=== PATIENT | female | born 1960 | race Caucasian/White ===

== ENCOUNTER 2016-06-30 15:36 | Emergency (ER) | payer MEDICAID ==
[~2016-06-30] VITALS: Ht 165.1 cm; Wt 94.7 kg
[~2016-06-30 15:36] MED LIST: ALPR0.25 PO; AMLO10TA4 PO; AMOX1TAB64 PO; CEFD300C2 PO; CHOLESTEROL PO; CIPR2.5D EACHEYE; CLIN300C93 PO; DIPH25CA61 PO; GABA300C PO; GABA300C10 PO; GABA600T2 PO; HYDR12.58 PO; LISI1TAB5 PO; METR500T PO; OXYC1TAB7 PO; POTA10TA11 PO; PROM25SU34 PO; SUMA50TA3 PO
[2016-06-30] MEDS ORDERED: DIAZEPAM 5 MG/ML, 2ML IVPush ONE (16:00)
[2016-06-30] MEDS ORDERED: ONDANSETRON 2MG/ML, 2ML IVPush ONE (16:00)
[2016-06-30] MEDS ORDERED: SODIUM CHLORIDE FLUSH 10ML SYR IVF ONE (16:00)
[2016-06-30] MEDS ORDERED: KETOROLAC 30 MG/1 ML IVPush ONE (16:00)
[2016-06-30] MEDS ORDERED: MORPHINE SULFATE 4 MG/ML, 1ML IVPush PRN (16:00)
[2016-06-30] MEDS ORDERED: SODIUM CHLORIDE 0.9% 1,000ML IVBOLUS ONE (16:00)
[2016-06-30] MEDS ORDERED: MORPHINE SULFATE 4 MG/ML, 1ML ONE (16:12)
[2016-06-30] MEDS ORDERED: KETOROLAC 30 MG/1 ML ONE (16:12)
[2016-06-30] MEDS ORDERED: ONDANSETRON 2MG/ML, 2ML ONE (16:12)
[2016-06-30] MEDS ORDERED: DIAZEPAM 5 MG/ML, 2ML ONE (16:12)
[2016-06-30 17:01] VITALS: BP 111/71
== END 2016-06-30 17:20 | disposition home or self-care (01) ==
LOC: ED 17:14
DX: M54.16 Radiculopathy, lumbar region (principal); I12.9 Hypertensive chronic kidney disease with stage 1 through stage 4 chronic kidney disease, or unspecified chronic kidney disease; N18.9 Chronic kidney disease, unspecified; Z85.3 Personal history of malignant neoplasm of breast; Z90.10 Acquired absence of unspecified breast and nipple
CPT/HCPCS: 96361; 96374; 96375; 99284; J1885; J2405; J3360; J7030; J7512

== ENCOUNTER 2016-09-04 16:15 | Emergency (ER) | payer MEDICAID ==
[~2016-09-04] VITALS: Ht 162.6 cm; Wt 78.0 kg
[~2016-09-04 16:15] MED LIST changes: -CEFD300C2 PO; +CEFD300C37 PO
[2016-09-04 16:26] VITALS: BP_DIAS 90
[2016-09-04 17:49] VITALS: BP_SYST 138
== END 2016-09-04 17:51 | disposition home or self-care (01) ==
LOC: ED 16:47
DX: S39.012A Strain of muscle, fascia and tendon of lower back, initial encounter (principal); W18.2XXA Fall in (into) shower or empty bathtub, initial encounter; Y93.E1 Activity, personal bathing and showering; Y92.89 Other specified places as the place of occurrence of the external cause; Y99.8 Other external cause status
CPT/HCPCS: 72110; 99284

== ENCOUNTER 2018-02-07 13:14 | Emergency (ER) | payer SELFPAY ==
[~2018-02-07] VITALS: Ht 165.1 cm; Wt 92.2 kg
[~2018-02-07 13:14] MED LIST changes: +CLIN300C8 PO; -CLIN300C93 PO
[2018-02-07] MEDS ORDERED: LOSA1TAB19 PO (14:49)
[2018-02-07] MEDS ORDERED: HYDROcodone/APAP 5/325 TABLET PO PRN (15:00)
[2018-02-07] MEDS ORDERED: KETOROLAC 30 MG/1 ML IM ONE (15:00)
[2018-02-07] MEDS ORDERED: KETOROLAC 30 MG/1 ML ONE (15:20)
[2018-02-07] MEDS ORDERED: HYDROcodone/APAP 5/325 TABLET ONE (15:21)
[2018-02-07 15:44] VITALS: BP 153/98
== END 2018-02-07 15:47 | disposition home or self-care (01) ==
LOC: ED 15:41
DX: S29.012A Strain of muscle and tendon of back wall of thorax, initial encounter (principal); C80.1 Malignant (primary) neoplasm, unspecified; I10 Essential (primary) hypertension; W01.0XXA Fall on same level from slipping, tripping and stumbling without subsequent striking against object, initial encounter; Y93.89 Activity, other specified; Y99.8 Other external cause status; Y92.009 Unspecified place in unspecified non-institutional (private) residence as the place of occurrence of the external cause
CPT/HCPCS: 72072; 72110; 93005; 96372; 99283; J1885

== ENCOUNTER 2018-07-12 00:53 | Emergency (ER) | payer BC, OTHER ==
[~2018-07-12] VITALS: Ht 165.1 cm; Wt 85.0 kg
[~2018-07-12 00:53] MED LIST changes: -GABA600T2 PO; +GABA600T7 PO; -HYDR12.58 PO; +HYDROCHLOROTH12.5 MG PO; +LOSA1TAB19 PO
[2018-07-12] MEDS ORDERED: ONDANSETRON 2MG/ML, 2ML IVPush ONE (01:30)
[2018-07-12] MEDS ORDERED: SODIUM CHLORIDE FLUSH 10ML SYR IVF ONE (01:30)
[2018-07-12] MEDS ORDERED: FAMOTIDINE 20 MG/2 ML IVP ONE (01:30)
[2018-07-12 01:41] LABS: BASOPHILS # (AUTO) 0.03 x10^3/uL (0-0.1); BASOPHILS % (AUTO) 0 % (0-1); EOSINOPHILS # (AUTO) 0.25 x10^3/uL (0-0.4); EOSINOPHILS % (AUTO) 4 % (1-7); LYMPHOCYTES # (AUTO) 1.83 x10^3/uL (1-3.4); LYMPHOCYTES % (AUTO) 26 % (22-44); MD NO; MEAN CORPUSCULAR HEMOGLOBIN 32.1 pg (27.0-34.8); MEAN CORPUSCULAR HGB CONC 34.4 g/dL (32.4-35.8); MEAN CORPUSCULAR VOLUME 93.3 fL (80-100); MEAN PLATELET VOLUME 7.2 fL (7.4-10.4); MONOCYTES # (AUTO) 0.45 x10^3/uL (0.2-0.8); MONOCYTES % (AUTO) 6 % (2-9); NEUTROPHILS # (AUTO) 4.55 x10^3/uL (1.8-6.8); NEUTROPHILS % (AUTO) 64 % (42-75); PLATELET COUNT 285 x10^3/uL (130-400); RED BLOOD COUNT 4.48 x10^6/uL (3.82-5.3); RED CELL DISTRIBUTION WIDTH 12.9 % (9.6-15.2)
[2018-07-12 01:51] LABS: INTERNATIONAL NORMALIZED RATIO 0.96 (0.93-1.1); PROTHROMBIN TIME 10.1 Seconds (9.6-11.5)
[2018-07-12 01:54] LABS: ALANINE AMINOTRANSFERASE 18 U/L (12-78); ALBUMIN 3.5 g/dL (3.4-5.0); ANION GAP 7 mmol/L (5-15); CALCIUM 8.9 mg/dL (8.5-10.1); CHLORIDE 108 mmol/L (98-107)
[2018-07-12 01:56] LABS: ALKALINE PHOSPHATASE 59 U/L (45-117); BILIRUBIN,TOTAL 0.1 mg/dL (0.2-1.0); TOTAL PROTEIN 6.9 g/dL (6.4-8.2)
[2018-07-12] MEDS ORDERED: ONDANSETRON 2MG/ML, 2ML ONE (02:44)
[2018-07-12] MEDS ORDERED: FAMOTIDINE 20 MG/2 ML ONE (02:44)
[2018-07-12] MEDS ORDERED: MORPHINE SULFATE 4 MG/ML, 1ML ONE ×2 (02:54→04:35)
[2018-07-12] MEDS: MORPHINE SULFATE 4 MG/ML, 1ML IVPush PRN ×2 (02:56→04:37)
--- NOTE | 2018-07-12 02:57 | NUR ---
IV placed. medicated for pain and nausea. Ultrasound at bedside.
[2018-07-12 04:51] LABS: MICROSCOPIC AUTO
[2018-07-12 05:07] LABS: CULTURE INDICATED? YES
[2018-07-12] MEDS ORDERED: CEFDINIR 300 MG CAPSULE ONE (05:27)
[2018-07-12] MEDS ORDERED: CEFDINIR 300 MG CAPSULE PO ONE (05:30)
--- NOTE | 2018-07-12 05:33 | NUR ---
DC PAPERS BEING REPRINTED.
[2018-07-12 05:44] VITALS: BP 123/88
== END 2018-07-12 05:46 | disposition home or self-care (01) ==
LOC: ED 01:44
DX: N10 Acute pyelonephritis (principal); N30.00 Acute cystitis without hematuria; I10 Essential (primary) hypertension; Z85.3 Personal history of malignant neoplasm of breast
CPT/HCPCS: 36415; 76700; 80053; 81001; 83690; 85025; 85610; 85730; 87077; 87086; 93005; 96374; 96375; 96376; 99284; J2405; J3490; 87186

== ENCOUNTER 2018-08-08 14:38 | Emergency (ER) | payer OTHER ==
[~2018-08-08] VITALS: Ht 165.1 cm; Wt 81.2 kg
[2018-08-08 14:47] VITALS: BP 152/92
[2018-08-08] MEDS ORDERED: METHOCARBAMOL 750 MG TABLET PO ONE (15:30)
[2018-08-08] MEDS ORDERED: ACETAMINOPHEN 500 MG TABLET PO ONE (15:30)
[2018-08-08] MEDS ORDERED: ACETAMINOPHEN 500 MG TABLET ONE (15:32)
[2018-08-08] MEDS ORDERED: METHOCARBAMOL 750 MG TABLET ONE (15:32)
--- NOTE | 2018-08-08 16:09 | NUR ---
RAD awaiting CT-CSPINE clearance
== END 2018-08-08 17:07 | disposition home or self-care (01) ==
LOC: ED 16:45
DX: S16.1XXA Strain of muscle, fascia and tendon at neck level, initial encounter (principal); S39.012A Strain of muscle, fascia and tendon of lower back, initial encounter; S29.012A Strain of muscle and tendon of back wall of thorax, initial encounter; I12.9 Hypertensive chronic kidney disease with stage 1 through stage 4 chronic kidney disease, or unspecified chronic kidney disease; N18.9 Chronic kidney disease, unspecified; Z85.3 Personal history of malignant neoplasm of breast; W01.0XXA Fall on same level from slipping, tripping and stumbling without subsequent striking against object, initial encounter; Y93.01 Activity, walking, marching and hiking; Y92.009 Unspecified place in unspecified non-institutional (private) residence as the place of occurrence of the external cause; Y99.8 Other external cause status
CPT/HCPCS: 72072; 72125; 99284

== ENCOUNTER 2018-08-30 23:00 | Emergency (ER) | payer OTHER ==
[~2018-08-30] VITALS: Ht 165.1 cm; Wt 82.2 kg
--- NOTE | 2018-08-30 23:41 | NUR ---
PT HAS INCREASING PAIN AND SWELLING PER PT IN HEEL OF LLE. PT CONCERNED THAT SHE HAS A SPIDER BITE THERE. MONITORSAPPLIED, SIDERAILS UP X2, CALL LIGHT WITHIN REACH. AWAITING ERP FOR EVAL AND ORDERS
[2018-08-30] MEDS ORDERED: HYDROcodone/APAP 5/325 TABLET ONE (23:49)
--- NOTE | 2018-08-30 23:51 | NUR ---
pt medicate dper may, awaiting xray
[2018-08-31] MEDS ORDERED: HYDROcodone/APAP 5/325 TABLET PO ONE
--- NOTE | 2018-08-31 00:09 | NUR ---
XRAY AT BEDSIDE
--- NOTE | 2018-08-31 00:48 | NUR ---
PT RESTING CALMLY, MONITORS IN PLACE, CALL LIGHT WITHIN REACH. AWAITING XRAY RESULT
[2018-08-31 01:37] VITALS: BP 144/93
--- NOTE | 2018-08-31 01:37 | NUR ---
GIVEN DC INSTRUCTION PT UNDERSTOOD PT UP AMBULATED TO CHECK OUT WITH STABLE GAIT
== END 2018-08-31 01:39 | disposition home or self-care (01) ==
LOC: ED 23:59
DX: L03.116 Cellulitis of left lower limb (principal); I10 Essential (primary) hypertension; F17.200 Nicotine dependence, unspecified, uncomplicated; Z85.3 Personal history of malignant neoplasm of breast
CPT/HCPCS: 99283

== ENCOUNTER 2019-02-18 17:31 | Inpatient (IN) | payer OTHER ==
[~2019-02-18] VITALS: Ht 165.1 cm; Wt 83.7 kg
[~2019-02-18 17:31] MED LIST changes: +LISI1TAB19 PO; -LISI1TAB5 PO
--- NOTE | 2019-02-18 17:40 | NUR ---
THIS IS A 58 YO F BIB [facility] FOR ALOC. SHE WAS FOUND IN HER CAR PASSED OUT. [facility] METALLURGICAL OR MATERIALS TECHNICIAN BELIEVED HER TO HAVE NO PULSE SO BEGAN CPR. PATIENT HAD PULSE UPON [facility] ARRIVAL. [facility] GAVE A TOTAL OF 2MG NARCAN INTRANASALLY AND 1MG NARCAN IV. PATIENT'S RESPIRATIONS ARE EVEN AND UNLABORED. SHE IS ORIENTED X4, REQUESTING TO CALL . PATIENT IS IN NO ACUTE DISTRESS. PATIENT STATES "I TAKE PILLS OCCASIONALLY, I THINK THEY ARE OXY 30S BUT I DONT KNOW".
[2019-02-18] MEDS ORDERED: ONDANSETRON 2MG/ML, 2ML ONE ×2 (17:58→18:05)
[2019-02-18] MEDS ORDERED: ONDANSETRON 2MG/ML, 2ML IVPush ONE (18:00)
--- NOTE | 2019-02-18 18:08 | NUR ---
PATIENT VOMITED 500CC
--- NOTE | 2019-02-18 18:20 | NUR ---
PT REPORT FROM STEPHEN MINAYA RN. PT CARE TO BE ASSUMED.
[2019-02-18] MEDS ORDERED: NALOXONE 0.4 MG/ML, 1ML IVPush PRN (18:30)
[2019-02-18] MEDS ORDERED: SODIUM CHLORIDE 0.9% 1,000ML IVBOLUS ONE (18:30)
[2019-02-18 18:41] LABS: BASOPHILS # (AUTO) 0.02 x10^3/uL (0-0.1); BASOPHILS % (AUTO) 0 % (0-1); EOSINOPHILS # (AUTO) 0.14 x10^3/uL (0-0.4); EOSINOPHILS % (AUTO) 1 % (1-7); LYMPHOCYTES # (AUTO) 0.91 x10^3/uL (1-3.4); LYMPHOCYTES % (AUTO) 6 % (22-44); MD NO; MEAN CORPUSCULAR HEMOGLOBIN 31.2 pg (27.0-34.8); MEAN CORPUSCULAR HGB CONC 32.8 g/dL (32.4-35.8); MEAN CORPUSCULAR VOLUME 95.3 fL (80-100); MEAN PLATELET VOLUME 7.5 fL (7.4-10.4); MONOCYTES # (AUTO) 0.72 x10^3/uL (0.2-0.8); MONOCYTES % (AUTO) 5 % (2-9); NEUTROPHILS # (AUTO) 13.36 x10^3/uL (1.8-6.8); NEUTROPHILS % (AUTO) 88 % (42-75); PLATELET COUNT 240 x10^3/uL (130-400); RED BLOOD COUNT 4.47 x10^6/uL (3.82-5.3); RED CELL DISTRIBUTION WIDTH 13.1 % (9.6-15.2)
--- NOTE | 2019-02-18 18:42 | NUR ---
PT DOZING, INTERMITTENT SNORING RESP NOTED, EASILY AWAKENED. A&OX4. DENIES ETOH INTAKE, BUT SAID "I HAD HEMA'S IN MY COFFEE THIS MORNING". DENIES [address] DRUG USE, BUT STATED SHE "TOOK A BLUE PILL". CARDIAC & VS MONITORING CONITINUING. NS INFUSING W-O, IV SITE PATENT, OXYGEN SAT 96% 2LNC. PER RONY RN, PT REPORTED LT SIDED LUMPECTOMY.
[2019-02-18 18:48] LABS: ALANINE AMINOTRANSFERASE 106 U/L (12-78); ANION GAP 10 mmol/L (5-15); CALCIUM 8.8 mg/dL (8.5-10.1); CHLORIDE 107 mmol/L (98-107)
[2019-02-18 18:50] LABS: ALKALINE PHOSPHATASE 85 U/L (45-117); BILIRUBIN,TOTAL 0.4 mg/dL (0.2-1.0); CREATININE 1.73 mg/dL (0.55-1.02); TOTAL PROTEIN 7.8 g/dL (6.4-8.2)
--- NOTE | 2019-02-18 20:54 | NUR ---
PT ASLEEP, EVEN CHEST RISE & FALL NOTED, CARDIAC & VS MONITORING CONTINUING (NSR), SIDE RAILS UP X2, CALL LIGHT W/IN REACH.
--- NOTE | 2019-02-18 21:35 | NUR ---
RA O2 SAT: 83%. WILL NOTIFY ERP OF ROOM SAT. PT ORIENTED TO NAME, PLACE, SITUATION. DENIES ETOH INTAKE (EXCEPT FOR BAILEYS IN HER COFFEE), DRUG USE, SI. O2 2LNC REAPPLIED. MONITOR: NSR. SIDE RAILS UP X2, CALL LIGHT W/IN REACH.
--- NOTE | 2019-02-18 22:09 | NUR ---
REPORT CALLED TO HEMAL BRYANT FOR ROOM 409
[2019-02-18 22:29] LABS: MICROSCOPIC AUTO
[2019-02-18 22:32] LABS: CULTURE INDICATED? NO
[2019-02-18 22:42] LABS: AMPHETAMINE SCREEN, URINE Negative (Negative); BARBITURATE SCREEN, URINE Negative (Negative); BENZODIAZEPINE SCREEN, URINE Negative (Negative); CANNABINOID SCREEN, URINE Negative (Negative); COCAINE SCREEN, URINE Negative (Negative); METHADONE SCREEN, URINE Negative (Negative); OPIATE SCREEN, URINE Negative (Negative)
[2019-02-18 22:48] VITALS: BP 118/75
[2019-02-19] MEDS ORDERED: BISACODYL 10 MG SUPP PR PRN (00:30)
[2019-02-19 01:53] VITALS: BP 113/68
[2019-02-19] MEDS: ACETAMINOPHEN 325 MG TABLET PO PRN ×2 (06:44→20:57)
[2019-02-19] MEDS: LIDODERM 5% PATCH TD PRN (06:47)
[2019-02-19 07:46] VITALS: BP 159/82
[2019-02-19] MEDS: ENOXAPARIN 40 MG/0.4 ML SQ SCH (09:00)
[2019-02-19 12:25] LABS: BASOPHILS # (AUTO) 0.01 x10^3/uL (0-0.1); BASOPHILS % (AUTO) 0 % (0-1); EOSINOPHILS # (AUTO) 0.12 x10^3/uL (0-0.4); EOSINOPHILS % (AUTO) 2 % (1-7); LYMPHOCYTES # (AUTO) 1.14 x10^3/uL (1-3.4); LYMPHOCYTES % (AUTO) 15 % (22-44); MD NO; MEAN CORPUSCULAR HEMOGLOBIN 31.2 pg (27.0-34.8); MEAN CORPUSCULAR HGB CONC 32.8 g/dL (32.4-35.8); MEAN CORPUSCULAR VOLUME 95.2 fL (80-100); MEAN PLATELET VOLUME 7.6 fL (7.4-10.4); MONOCYTES # (AUTO) 0.48 x10^3/uL (0.2-0.8); MONOCYTES % (AUTO) 7 % (2-9); NEUTROPHILS % (AUTO) 77 % (42-75); PLATELET COUNT 220 x10^3/uL (130-400); RED BLOOD COUNT 4.16 x10^6/uL (3.82-5.3); RED CELL DISTRIBUTION WIDTH 13.1 % (9.6-15.2)
[2019-02-19 12:32] VITALS: BP 133/84
[2019-02-19 12:34] LABS: ALANINE AMINOTRANSFERASE 77 U/L (12-78); ALBUMIN 3.4 g/dL (3.4-5.0); ANION GAP 6 mmol/L (5-15); CALCIUM 8.8 mg/dL (8.5-10.1); CHLORIDE 110 mmol/L (98-107); CREATININE 1.08 mg/dL (0.55-1.02)
[2019-02-19 12:37] LABS: ALKALINE PHOSPHATASE 68 U/L (45-117); BILIRUBIN,TOTAL 0.4 mg/dL (0.2-1.0); TOTAL PROTEIN 6.9 g/dL (6.4-8.2)
[2019-02-19] MEDS: AMPICILLIN/SULBACTAM 1,500 MG in SODIUM CHLORIDE 0.9% 50 ML IV SCH ×2 (15:56→20:53)
[2019-02-19] MEDS ORDERED: OXYcodone IR 5MG TABLET PO PRN (16:30)
[2019-02-19 19:29] VITALS: BP 145/94
[2019-02-20 01:23] VITALS: BP 149/92
[2019-02-20] MEDS ORDERED: OXYcodone IR 5MG TABLET PO PRN ×2 (01:30→12:01)
[2019-02-20] MEDS: AMPICILLIN/SULBACTAM 1,500 MG in SODIUM CHLORIDE 0.9% 50 ML IV SCH ×3 (02:46→15:25)
[2019-02-20 06:20] LABS: BASOPHILS # (AUTO) 0.04 x10^3/uL (0-0.1); BASOPHILS % (AUTO) 1 % (0-1); EOSINOPHILS # (AUTO) 0.29 x10^3/uL (0-0.4); EOSINOPHILS % (AUTO) 4 % (1-7); LYMPHOCYTES # (AUTO) 1.21 x10^3/uL (1-3.4); LYMPHOCYTES % (AUTO) 16 % (22-44); MD NO; MEAN CORPUSCULAR HEMOGLOBIN 31.3 pg (27.0-34.8); MEAN CORPUSCULAR HGB CONC 32.9 g/dL (32.4-35.8); MEAN CORPUSCULAR VOLUME 95.2 fL (80-100); MEAN PLATELET VOLUME 7.5 fL (7.4-10.4); MONOCYTES # (AUTO) 0.56 x10^3/uL (0.2-0.8); MONOCYTES % (AUTO) 8 % (2-9); NEUTROPHILS # (AUTO) 5.31 x10^3/uL (1.8-6.8); NEUTROPHILS % (AUTO) 72 % (42-75); PLATELET COUNT 213 x10^3/uL (130-400)
[2019-02-20 06:33] LABS: ANION GAP 4 mmol/L (5-15); CALCIUM 8.7 mg/dL (8.5-10.1); CHLORIDE 113 mmol/L (98-107); CREATININE 0.91 mg/dL (0.55-1.02)
[2019-02-20 06:46] VITALS: BP 159/101
[2019-02-20] MEDS: LIDODERM 5% PATCH TD PRN (08:43)
[2019-02-20] MEDS: ENOXAPARIN 40 MG/0.4 ML SQ SCH (08:50)
[2019-02-20 09:38] VITALS: BP 160/99
[2019-02-20] MEDS ORDERED: AMLODIPINE 5 MG TABLET PO SCH (11:30)
[2019-02-20 13:52] VITALS: BP 155/98
[2019-02-20] MEDS ORDERED: HYDROcodone/APAP 10/325 MG TABLET PO PRN (14:00)
[2019-02-20 15:25] VITALS: BP 134/84
[2019-02-20] MEDS ORDERED: LIDO700A20 TD (16:33)
[2019-02-20] MEDS ORDERED: AMLO-150 PO (16:33)
[2019-02-20] MEDS ORDERED: AMOX1TAB12 PO (16:33)
== END 2019-02-20 17:52 | disposition home or self-care (01) | DRG 917 ==
LOC: ED 20:48 → EDIP 22:08 → 4WST 22:36
PROVIDERS: ADMIT Internal Medicine; ATTEND Internal Medicine
DX: T39.91XA Poisoning by unspecified nonopioid analgesic, antipyretic and antirheumatic, accidental (unintentional), initial encounter (principal); J69.0 Pneumonitis due to inhalation of food and vomit; G92 Toxic encephalopathy; J96.01 Acute respiratory failure with hypoxia; T40.601A Poisoning by unspecified narcotics, accidental (unintentional), initial encounter; F17.200 Nicotine dependence, unspecified, uncomplicated; F41.0 Panic disorder [episodic paroxysmal anxiety]; G89.4 Chronic pain syndrome; I12.9 Hypertensive chronic kidney disease with stage 1 through stage 4 chronic kidney disease, or unspecified chronic kidney disease; N18.3 Chronic kidney disease, stage 3 (moderate); Z85.3 Personal history of malignant neoplasm of breast; Z86.14 Personal history of Methicillin resistant Staphylococcus aureus infection
CPT/HCPCS: 36415; 71045; 80048; 80053; 80074; 80307; 81001; 85025; 93005; 96361; 96374; 99291; G0378; J2405; J0295; J7030

== ENCOUNTER 2019-02-27 10:33 | Emergency (ER) | payer OTHER ==
[~2019-02-27] VITALS: Ht 165.1 cm; Wt 83.6 kg
[~2019-02-27 10:33] MED LIST changes: +AMLO-150 PO; +AMOX1TAB12 PO; +LIDO700A20 TD
[2019-02-27 11:02] VITALS: BP 158/98
--- NOTE | 2019-02-27 11:11 | NUR ---
PT TO RADIOLOGY.
--- NOTE | 2019-02-27 11:34 | NUR ---
PT BACK FROM RADIOLOGY. PT STATES SHE IS HERE FOR POSSIBLE BROKEN RIB S/P CPR. PT STATES PAIN WORSE ON RIGHT SIDE.
[2019-02-27] MEDS ORDERED: OXYcodone/APAP 5/325MG TABLET PO ONE (12:00)
[2019-02-27] MEDS ORDERED: OXYcodone/APAP 5/325MG TABLET ONE (12:08)
--- NOTE | 2019-02-27 12:10 | NUR ---
PT MEDICATED PER MAR. IS TEACHING COMPLETED.
--- NOTE | 2019-02-27 12:13 | NUR ---
Patient/Caregiver given discharge instructions and they have confirmed that they understand the instructions. Patient ambulatory with steady gait.
== END 2019-02-27 12:15 | disposition home or self-care (01) ==
LOC: ED 12:04
DX: S22.41XA Multiple fractures of ribs, right side, initial encounter for closed fracture (principal); I10 Essential (primary) hypertension; F17.200 Nicotine dependence, unspecified, uncomplicated; X58.XXXA Exposure to other specified factors, initial encounter; Y93.89 Activity, other specified; Y92.89 Other specified places as the place of occurrence of the external cause; Y99.8 Other external cause status
CPT/HCPCS: 99283

== ENCOUNTER 2019-03-08 14:26 | Emergency (ER) | payer OTHER ==
[~2019-03-08] VITALS: Ht 165.1 cm; Wt 85.0 kg
--- NOTE | 2019-03-08 14:38 | NUR ---
plan for labs/cxr. Dr. Lo in room. pt denies drugs, has hx overdose.
[2019-03-08 14:58] LABS: BASOPHILS # (AUTO) 0.04 x10^3/uL (0-0.1); BASOPHILS % (AUTO) 0 % (0-1); EOSINOPHILS # (AUTO) 0.45 x10^3/uL (0-0.4); EOSINOPHILS % (AUTO) 5 % (1-7); LYMPHOCYTES # (AUTO) 1.74 x10^3/uL (1-3.4); LYMPHOCYTES % (AUTO) 19 % (22-44); MD NO; MEAN CORPUSCULAR HEMOGLOBIN 31.6 pg (27.0-34.8); MEAN CORPUSCULAR HGB CONC 33.6 g/dL (32.4-35.8); MEAN CORPUSCULAR VOLUME 93.8 fL (80-100); MONOCYTES # (AUTO) 0.38 x10^3/uL (0.2-0.8); MONOCYTES % (AUTO) 4 % (2-9); NEUTROPHILS # (AUTO) 6.75 x10^3/uL (1.8-6.8); NEUTROPHILS % (AUTO) 72 % (42-75); PLATELET COUNT 398 x10^3/uL (130-400); RED CELL DISTRIBUTION WIDTH 13.3 % (9.6-15.2)
[2019-03-08 15:08] LABS: ALBUMIN 3.6 g/dL (3.4-5.0); ANION GAP 7 mmol/L (5-15); CALCIUM 8.8 mg/dL (8.5-10.1); CHLORIDE 107 mmol/L (98-107); CREATININE 1.17 mg/dL (0.55-1.02)
[2019-03-08 15:11] LABS: TROPONIN I < 0.015 ng/mL (0.000-0.045)
--- NOTE | 2019-03-08 15:41 | NUR ---
CXR CLEAR LABS WNL WILL BE OBS TIL 1600. CALL PLACED TO , ON HIS WAY. PT A&O X4 GCS 15 VSS, ALERT, TALKING.
--- NOTE | 2019-03-08 15:58 | NUR ---
TASK RN: PT OOB AND AMBULATED TO BATHROOM, UPRIGHT STEADY GAIT. RTD TO ROOM W/O INCIDENT
--- NOTE | 2019-03-08 16:23 | NUR ---
family at bedside pt up for recheck.
[2019-03-08 16:40] VITALS: BP 112/73
== END 2019-03-08 16:43 | disposition home or self-care (01) ==
LOC: ED 15:00
DX: T40.601A Poisoning by unspecified narcotics, accidental (unintentional), initial encounter (principal); I10 Essential (primary) hypertension; F17.200 Nicotine dependence, unspecified, uncomplicated; Z90.89 Acquired absence of other organs; Z85.3 Personal history of malignant neoplasm of breast
CPT/HCPCS: 36415; 71045; 80048; 82040; 84484; 85025; 93005; 99284

== ENCOUNTER 2019-05-03 17:38 | Inpatient (IN) | payer OTHER ==
[~2019-05-03] VITALS: Ht 162.6 cm; Wt 84.8 kg
--- NOTE | 2019-05-03 17:41 | NUR ---
BIB EMS FOR WITNESSED COLLAPSE BY . UPON ARRIVAL, EMS FOUND PATIENT IN FULL ARREST, PERFORMED CPR AND GAVE NARCAN IN WELL IV. ROSC WAS OBTAINED. PT ARRIVES DROWSY. VS STABLE.
[2019-05-03] MEDS ORDERED: NALOXONE 8 MG in SODIUM CHLORIDE 0.9% 242 ML IV PRN (18:00)
[2019-05-03] MEDS ORDERED: SODIUM CHLORIDE FLUSH 10ML SYR IVF ONE (18:00)
--- NOTE | 2019-05-03 18:04 | NUR ---
PT REMAINS DROWSY BUT ORIENTED AND ANSWERING QUESTIONS. LAB AT BEDSIDE.
--- NOTE | 2019-05-03 18:04 | NUR ---
NARCAN DRIP STARTED AT 1MG/HR AT THE VERBAL BEDSIDE ORDER OF DR. CHEN.
--- NOTE | 2019-05-03 18:15 | NUR ---
AT BEDSIDE. SBAR BEDSIDE HAND-OFF REPORT GIVEN TO HEMAL ZUNIGA.
[2019-05-03 18:27] LABS: BASOPHILS # (AUTO) 0.02 x10^3/uL (0-0.1); BASOPHILS % (AUTO) 0 % (0-1); EOSINOPHILS # (AUTO) 0.12 x10^3/uL (0-0.4); EOSINOPHILS % (AUTO) 1 % (1-7); LYMPHOCYTES # (AUTO) 1.24 x10^3/uL (1-3.4); LYMPHOCYTES % (AUTO) 15 % (22-44); MD NO; MEAN CORPUSCULAR HEMOGLOBIN 31.5 pg (27.0-34.8); MEAN CORPUSCULAR HGB CONC 33.8 g/dL (32.4-35.8); MEAN PLATELET VOLUME 7.6 fL (7.4-10.4); MONOCYTES # (AUTO) 0.16 x10^3/uL (0.2-0.8); MONOCYTES % (AUTO) 2 % (2-9); NEUTROPHILS # (AUTO) 6.84 x10^3/uL (1.8-6.8); NEUTROPHILS % (AUTO) 82 % (42-75); PLATELET COUNT 274 x10^3/uL (130-400); RED BLOOD COUNT 4.53 x10^6/uL (3.82-5.3); RED CELL DISTRIBUTION WIDTH 13.1 % (9.6-15.2)
[2019-05-03 18:31] LABS: INTERNATIONAL NORMALIZED RATIO 0.99 (0.93-1.1); PROTHROMBIN TIME 10.5 Seconds (9.6-11.5)
[2019-05-03 18:34] LABS: ALBUMIN 3.7 g/dL (3.4-5.0); ANION GAP 15 mmol/L (5-15); CALCIUM 9.2 mg/dL (8.5-10.1); CHLORIDE 107 mmol/L (98-107)
[2019-05-03 18:37] LABS: ALANINE AMINOTRANSFERASE 34 U/L (12-78); ALKALINE PHOSPHATASE 80 U/L (45-117); BILIRUBIN,TOTAL 0.3 mg/dL (0.2-1.0); CREATININE 1.86 mg/dL (0.55-1.02); TOTAL PROTEIN 7.3 g/dL (6.4-8.2)
[2019-05-03 18:45] LABS: TROPONIN I 0.928 ng/mL (0.000-0.045)
[2019-05-03] MEDS ORDERED: ASPIRIN 81 MG TABLET CHEW ONE (18:59)
[2019-05-03] MEDS ORDERED: ASPIRIN 81 MG TABLET CHEW PO ONE (19:00)
[2019-05-03] MEDS ORDERED: SODIUM CHLORIDE 0.9% 1,000ML IVBOLUS ONE (19:00)
--- NOTE | 2019-05-03 19:07 | NUR ---
ASA GIVEN. NS BOLUS STARTED.
--- NOTE | 2019-05-03 19:13 | NUR ---
RECEIVED REPORT FROM MARIMAR RECIO, ASSUMING CARE OF PT. AT BEDSIDE TO UPDATE PT AND FAMILY ON POC.
--- NOTE | 2019-05-03 19:18 | NUR ---
HOSPITALIST AT BEDSIDE FOR ADMIT ASSESSMENT. FAMILY AT BEDSIDE. PT DROWSY BY A&OX4. NARCAN DRIP RUNNING. VSS. PT BECAME SLIGHTLY HYPOTENSIVE, 2 LITERS NS RUNNING.
[2019-05-03] MEDS ORDERED: SODIUM CHLORIDE 0.9% 1,000 ML IV SCH (19:23)
[2019-05-03] MEDS ORDERED: ONDANSETRON 2MG/ML, 2ML IVPush PRN (19:30)
[2019-05-03] MEDS ORDERED: hydrALAzine 20 MG/ML, 1ML IVPush PRN (19:30)
--- NOTE | 2019-05-03 19:50 | NUR ---
PT C/O LEFT SIDE CHEST PAIN, MD UPDATED. REPEAT EKG BEING DONE NOW.
[2019-05-03] MEDS ORDERED: HEPARIN 5,000 UNITS/ML, 1ML SQ SCH (20:00)
--- NOTE | 2019-05-03 20:14 | NUR ---
PT BEING TAKEN TO CT
--- NOTE | 2019-05-03 21:22 | NUR ---
PT CURRENTLY SLEEPING IN BED. VSS. NADN. HOLDING IN THE ER FOR A CCU BED. CALL LIGHT WITHIN REACH. HOSPITAL BED TO BE ORDERED
--- NOTE | 2019-05-03 22:35 | NUR ---
PT STS NEEDS TO VOID, DOESNT FEEL ABLE TO GET CLEAN CATCH, STRAIGHT CATH OFFERED FOR TESTING, PT REFUSED.
--- NOTE | 2019-05-03 22:36 | NUR ---
PT USING BEDPAN TO VOID. VSS. INTERMITTENTLY SLEEPING, VSS AT THIS TIME. WILL CONTINUE TO MONITOR.
--- NOTE | 2019-05-03 22:52 | NUR ---
REPORT GIVEN TO DAHLIA RECIO
--- NOTE | 2019-05-03 22:56 | NUR ---
RPT RECEIVED FROM NIYAH MENDIOLA RN. ASSUMED CARE OF PT. CHART REVEIWED. PT RESTING COMFORTABLY. MONITOR IN PLACE.
--- NOTE | 2019-05-04 00:13 | NUR ---
PT TRANSFERRED TO HOSPITAL BED. NO OTHER NEEDS AT THIS TIME. MONITOR IN PLACE.
--- NOTE | 2019-05-04 00:33 | NUR ---
RECEIVED REPORT FROM HEMAL RODRIGUEZ TO ASSUME CARE OF PT. AT THIS TIME.
--- NOTE | 2019-05-04 01:23 | NUR ---
TC TO DR. ALARCON; GA CARRASCO D/C AT THIS TIME WITH HIS OK; PER HIM WE WILL MONITOR PT. FOR A COUPLE OF HOURS AND IF PT. VS AND STATUS REMAIN STABLE PT. CAN BE DOWNGRADED. LAB COMPLETED BLOOD DRAW AT BS.
[2019-05-04] MEDS ORDERED: HEPARIN 5,000 UNITS/ML, 1ML IV ONE (02:00)
[2019-05-04] MEDS ORDERED: HEPARIN 5,000 UNITS/ML, 1ML ONE ×2 (02:20→09:48)
[2019-05-04] MEDS ORDERED: HEPARIN 25,000 UNITS/250ML PMX 250 ML ONE (02:20)
[2019-05-04] MEDS: HEPARIN 25,000 UNITS/250ML PMX 250 ML IV PRN (02:55)
--- NOTE | 2019-05-04 02:57 | NUR ---
2ND IV ESTABLISHED AND HEPARIN DRIP INITIATED. PT. EDUCATED ON IMPORTANCE OF USING CALL LIGHT AND SAFEY OF BEING ON BLOOD THINNER; VERBALIZED UNDERSTANDING. PT. REMAINS A&OX 4 AND IS COOPERATIVE WITH STAFF. DENIES NEEDS AT THIS TIME. ALL MONITORS REMAIN IN PLACE. ALL SAFETY MEASURES OBSERVED.
--- NOTE | 2019-05-04 03:06 | NUR ---
DR. ALARCON TO BS TO EVAL PT AND FURTHER DISCUSS POC.
--- NOTE | 2019-05-04 03:56 | NUR ---
PT. RESTING ON HOSPITAL BED WITH EYES CLOSED. EVEN, NON-LABORED RESPIRATIONS VISIBLE. VS UPDATED. ALL SAFETY MEASURES OBSERVED.
--- NOTE | 2019-05-04 03:59 | NUR ---
THIS RN SPOKE WITH MANAGER SPECIAL EVENTS PRIOR TO HEPARIN INITIATION(CHARTED IN EMR NOTES) TO ENSURE THAT THEY HAD BLOOD FOR THE ANTI XA; THEY REPORTED THAT THEY DID INDEED HAVE THE BLOOD. THIS RN RECEIVED CALL FROM LAB STATING THAT THE BLOOD WAS DRAWN "TOO LONG AGO" FOR THE ANTI XA TO BE DRAWN; LAB AT TO DRAW NOW, HOWEVER, HEPARIN HAS BEEN RUNNING FOR 1 HOUR AT THIS TIME.
[2019-05-04 04:17] LABS: BASOPHILS # (AUTO) 0.01 x10^3/uL (0-0.1); BASOPHILS % (AUTO) 0 % (0-1); EOSINOPHILS # (AUTO) 0.02 x10^3/uL (0-0.4); EOSINOPHILS % (AUTO) 0 % (1-7); LYMPHOCYTES # (AUTO) 0.91 x10^3/uL (1-3.4); LYMPHOCYTES % (AUTO) 7 % (22-44); MD NO; MEAN CORPUSCULAR HEMOGLOBIN 31.7 pg (27.0-34.8); MEAN CORPUSCULAR HGB CONC 34.1 g/dL (32.4-35.8); MEAN CORPUSCULAR VOLUME 92.8 fL (80-100); MEAN PLATELET VOLUME 7.4 fL (7.4-10.4); MONOCYTES # (AUTO) 0.45 x10^3/uL (0.2-0.8); MONOCYTES % (AUTO) 3 % (2-9); NEUTROPHILS # (AUTO) 12.61 x10^3/uL (1.8-6.8); NEUTROPHILS % (AUTO) 90 % (42-75); PLATELET COUNT 276 x10^3/uL (130-400); RED BLOOD COUNT 4.23 x10^6/uL (3.82-5.3); RED CELL DISTRIBUTION WIDTH 12.9 % (9.6-15.2)
[2019-05-04 04:25] LABS: ALANINE AMINOTRANSFERASE 35 U/L (12-78); ALBUMIN 3.4 g/dL (3.4-5.0); ANION GAP 7 mmol/L (5-15); CALCIUM 8.9 mg/dL (8.5-10.1); CHLORIDE 110 mmol/L (98-107); CREATININE 1.13 mg/dL (0.55-1.02)
[2019-05-04 04:27] LABS: ALKALINE PHOSPHATASE 62 U/L (45-117); BILIRUBIN,TOTAL 0.5 mg/dL (0.2-1.0)
--- NOTE | 2019-05-04 04:46 | NUR ---
PT. ASSISTED TO USE BED MOCK; URINE SAMPELE FOR DOA COLLECTED AND SENT TO LAB. PT. ASSISTED WITH CLEANSING SKIN. VS UPDATED. PT. DENIES OTHER NEEDS AT THIS TIME. REPORT TO HEMAL LOCKETT TO ASSUME CARE OF PT.
--- NOTE | 2019-05-04 04:59 | NUR ---
REPORT RECEIVED, CARE ASSUMED. ST PER MONITOR. PT ASSISTED TO USE BEDPAN BY NOC RN. NO OTHER NEEDS EXPRESSED AT THIS TIME.
[2019-05-04 05:04] LABS: AMPHETAMINE SCREEN, URINE Negative (Negative); BARBITURATE SCREEN, URINE Negative (Negative); BENZODIAZEPINE SCREEN, URINE Negative (Negative); CANNABINOID SCREEN, URINE Negative (Negative); COCAINE SCREEN, URINE Negative (Negative); METHADONE SCREEN, URINE Negative (Negative); OPIATE SCREEN, URINE Negative (Negative)
[2019-05-04] MEDS: ASPIRIN 325 MG TABLET EC PO SCH (06:18)
[2019-05-04] MEDS ORDERED: ASPIRIN 325 MG TABLET EC ONE (06:18)
--- NOTE | 2019-05-04 06:29 | NUR ---
PT DOZING INTERMITTENTLY, AROUSES EASILY. TAKING SIPS OF PO FLUIDS WITHOUT DIFFICULTY. SR PER MONITOR. HEPARIN GTT AND NS INFUSING WITHOUT REDNESS/SWELLING. NO NEEDS EXPRESSED AT THIS TIME.
--- NOTE | 2019-05-04 07:25 | NUR ---
DON RN, FROM [facility]U CALLED FOR REPORT BUT WAS WONDERING IF PATIENT COULD BE DOWNGRADED SINCE PATIENT HAS BEEN OFF OF NARCAN DRIP FOR SEVERAL HOURS. THIS RN CALLED DR. ROMANO. DR. ROMANO TO COME TO SEE PATIET IN APPROX. 15 MINUTES TO MAKE LEVEL OF CARE DECISION. VS UPDATED AND WNL. PT ALERT AND ORIENTED. LUNGS CLEAR.
[2019-05-04] MEDS ORDERED: PANTOPRAZOLE 40 MG IV ONE (08:18)
[2019-05-04] MEDS ORDERED: MORPHINE SULFATE 4 MG/ML, 1ML ONE ×2 (08:18→12:48)
[2019-05-04] MEDS ORDERED: ONDANSETRON 2MG/ML, 2ML ONE (08:27)
[2019-05-04] MEDS: PANTOPRAZOLE 40 MG IV IVPush SCH (08:30)
[2019-05-04] MEDS: morphine SULFATE 10 MG/ML, 1ML IVPush PRN ×2 (08:31→12:54)
--- NOTE | 2019-05-04 08:34 | NUR ---
PATIENT MEDICATED WITH AM PROTONIX IV, MORPHINE AND ZOFRAN. BREAKFAST TRAY SERVED TO PATIENT.
[2019-05-04] MEDS ORDERED: MAGNESIUM SULFATE PMX 2GM/50ML 50 ML IV ONE (09:00)
[2019-05-04] MEDS ORDERED: MAGNESIUM SULFATE PMX 2GM/50ML 50 ML ONE (09:10)
--- NOTE | 2019-05-04 09:20 | NUR ---
REPORT FROM MARIMAR RECIO, ASSUME CARE OF PT AT THIS TIME. MAGNESIUM INFUSION STARTED PER EMAR, HEPARIN AND NS INFUSING. PT REPORTS CP DECREASED FOLLOWING MORPHINE GIVEN PREVIOUSLY. PT RATES PAIN AT 6/10, "TOLERABLE" LEVEL. CALL LIGHT WITHIN REACH. PT EATING MEAL TRAY. VSS/UPDATED IN COMPUTER.
--- NOTE | 2019-05-04 09:54 | NUR ---
CALL TO PHARMACY, VERIFICATION OF HEPARIN BOLUS IN INCREASE RATE BY 100 UNITS (ADJUSTED DOWN FOR PT HEIGHT). DR AKBAR CALLED TO REPORT TROPONIN 1.740.
[2019-05-04] MEDS: HEPARIN 5,000 UNITS/ML, 1ML IV PRN ×2 (09:56→17:22)
--- NOTE | 2019-05-04 11:01 | NUR ---
TASK RN: PT HELPED TRANSFER TO BSC AND BACK TO BED. STEADY WITH TRANSFER. NOW CONNECTED TO MONITOR. NADN. DENIES FURTHER NEEDS. FINISHED ENTIRE BREAKFAST TRAY.
--- NOTE | 2019-05-04 12:20 | NUR ---
PT SLEEPING, NAD. CONTINUE TO AWAIT ADMIT BED. CALL LIGHT WITHINR REACH.
--- NOTE | 2019-05-04 12:55 | NUR ---
PT REQUESTING MEDICINE FOR PAIN. 2MG MORPHINE GIVEN FOR CP RATED 8/10. PT SLEEPING INTERMITTENTLY. CALL LIGHT WITHIN REACH.
--- NOTE | 2019-05-04 13:48 | NUR ---
REPORT TO IRENE RECIO, PT READY FOR TRANSPORT.
--- NOTE | 2019-05-04 13:51 | NUR ---
CALLED AND NOTIFIED OF PT ADMIT ROOM. JEREMIAH MAURICIO [phone]
[2019-05-04 15:40] VITALS: BP 131/83
[2019-05-04] MEDS: MORPHINE SULFATE 4 MG/ML, 1ML IVPush PRN ×2 (17:22→21:55)
[2019-05-04] MEDS: METOPROLOL TARTRATE 25 MG TAB PO SCH (17:33)
[2019-05-04] MEDS ORDERED: SODIUM CHLORIDE 0.9% 1,000 ML IV SCH (19:23)
[2019-05-04 19:36] VITALS: BP 113/74
[2019-05-04] MEDS: ATORVASTATIN 80 MG TABLET PO SCH (21:55)
[2019-05-04] MEDS: LIDODERM REMOVE PATCH NOTE XX SCH (22:00)
[2019-05-04] MEDS: LIDODERM 5% PATCH TD SCH (22:12)
[2019-05-05] MEDS: HEPARIN 5,000 UNITS/ML, 1ML IV PRN (00:14)
[2019-05-05 01:46] VITALS: BP 132/90
[2019-05-05] MEDS: HEPARIN 25,000 UNITS/250ML PMX 250 ML IV PRN (03:27)
[2019-05-05] MEDS: MORPHINE SULFATE 4 MG/ML, 1ML IVPush PRN ×6 (03:38→23:37)
[2019-05-05 06:22] VITALS: BP 130/86
[2019-05-05] MEDS: ASPIRIN 325 MG TABLET EC PO SCH (06:23)
[2019-05-05] MEDS: METOPROLOL TARTRATE 25 MG TAB PO SCH ×2 (06:23→17:15)
[2019-05-05 06:53] LABS: BASOPHILS # (AUTO) 0.03 x10^3/uL (0-0.1); BASOPHILS % (AUTO) 0 % (0-1); EOSINOPHILS # (AUTO) 0.27 x10^3/uL (0-0.4); EOSINOPHILS % (AUTO) 3 % (1-7); LYMPHOCYTES # (AUTO) 1.83 x10^3/uL (1-3.4); LYMPHOCYTES % (AUTO) 23 % (22-44); MD NO; MEAN CORPUSCULAR HEMOGLOBIN 31.7 pg (27.0-34.8); MEAN CORPUSCULAR HGB CONC 33.9 g/dL (32.4-35.8); MEAN CORPUSCULAR VOLUME 93.4 fL (80-100); MEAN PLATELET VOLUME 7.2 fL (7.4-10.4); MONOCYTES # (AUTO) 0.16 x10^3/uL (0.2-0.8); MONOCYTES % (AUTO) 2 % (2-9); NEUTROPHILS # (AUTO) 5.84 x10^3/uL (1.8-6.8); NEUTROPHILS % (AUTO) 72 % (42-75); PLATELET COUNT 221 x10^3/uL (130-400); RED BLOOD COUNT 4.21 x10^6/uL (3.82-5.3); RED CELL DISTRIBUTION WIDTH 13.2 % (9.6-15.2)
[2019-05-05 07:00] VITALS: BP 148/98
[2019-05-05 07:04] LABS: ANION GAP 5 mmol/L (5-15); CALCIUM 8.8 mg/dL (8.5-10.1); CHLORIDE 109 mmol/L (98-107)
[2019-05-05 07:08] LABS: CHOL/HDL RATIO 3.1; CHOLESTEROL, TOTAL 172 mg/dL (140-239); CREATININE 1.07 mg/dL (0.55-1.02); HDL CHOL % 32 % (28-40); HDL CHOLESTEROL (DIRECT) 55 mg/dL (40-60); LDL CHOLESTEROL,CALCULATED 78 mg/dL (54-169); LDL/HDL RATIO 1.4 (0.5-3.0); TRIGLYCERIDES 193 mg/dL (50-200); VLDL CHOLESTEROL 39 mg/dL (0-25)
[2019-05-05] MEDS: PANTOPRAZOLE 40 MG IV IVPush SCH (08:56)
[2019-05-05] MEDS ORDERED: SODIUM CHLORIDE 0.9% 1,000 ML IV SCH (10:00)
[2019-05-05] MEDS ORDERED: HEPARIN 1,000 UNITS/ML, 10ML ONE (13:32)
[2019-05-05] MEDS ORDERED: VERAPAMIL 2.5 MG/ML, 2ML ONE (13:32)
[2019-05-05] MEDS ORDERED: FENTANYL PF 100 MCG/2ML ONE (13:32)
[2019-05-05] MEDS ORDERED: LIDOCAINE-MPF 1%, 5ML ONE (13:32)
[2019-05-05] MEDS ORDERED: MIDAZOLAM 1 MG/ML, 5ML ONE (13:32)
[2019-05-05 13:50] VITALS: BP 102/66
[2019-05-05 14:30] VITALS: BP 139/83
[2019-05-05] MEDS ORDERED: LIDOCAINE 1%, 20ML ONE (14:57)
[2019-05-05] MEDS ORDERED: SODIUM CHLORIDE 0.9% 1,000 ML IV ONE (18:00)
[2019-05-05 20:14] VITALS: BP 147/90
[2019-05-05] MEDS: ATORVASTATIN 80 MG TABLET PO SCH (20:20)
[2019-05-05] MEDS: LIDODERM REMOVE PATCH NOTE XX SCH (22:00)
[2019-05-05] MEDS: LIDODERM 5% PATCH TD SCH (23:39)
[2019-05-06 01:02] VITALS: BP 148/88
[2019-05-06 04:56] VITALS: BP 124/80
[2019-05-06] MEDS: ASPIRIN 325 MG TABLET EC PO SCH (04:57)
[2019-05-06] MEDS: MORPHINE SULFATE 4 MG/ML, 1ML IVPush PRN ×3 (04:57→11:58)
[2019-05-06] MEDS: METOPROLOL TARTRATE 25 MG TAB PO SCH (04:58)
[2019-05-06 07:35] VITALS: BP 123/74
[2019-05-06] MEDS: PANTOPRAZOLE 40 MG IV IVPush SCH (08:41)
[2019-05-06] MEDS ORDERED: METO25TA35 PO (10:04)
[2019-05-06] MEDS ORDERED: ASPI-650 PO (10:04)
[2019-05-06] MEDS ORDERED: ATOR-2 PO (10:04)
[2019-05-06 13:30] VITALS: BP 125/80
[2019-05-07] MEDS ORDERED: PANTOPROZOLE 40MG TABLET PO SCH (09:00)
== END 2019-05-06 14:00 | disposition home or self-care (01) | DRG 280 ==
LOC: ED 19:10 → EDIP 19:19 → ED 19:32 → 5SO 05-04 14:16
PROVIDERS: ADMIT Family Medicine; ATTEND Internal Medicine
PROC: 4A023N7 Measurement of Cardiac Sampling and Pressure, Left Heart, Percutaneous Approach (ICD-10-PCS; principal; 2019-05-05)
PROC: B211YZZ Fluoroscopy of Multiple Coronary Arteries using Other Contrast (ICD-10-PCS; 2019-05-05)
DX: I21.4 Non-ST elevation (NSTEMI) myocardial infarction (principal); I46.9 Cardiac arrest, cause unspecified; N17.0 Acute kidney failure with tubular necrosis; J96.91 Respiratory failure, unspecified with hypoxia; E87.2 Acidosis; R07.89 Other chest pain; E11.22 Type 2 diabetes mellitus with diabetic chronic kidney disease; E11.65 Type 2 diabetes mellitus with hyperglycemia; E86.0 Dehydration; F41.0 Panic disorder [episodic paroxysmal anxiety]; I12.9 Hypertensive chronic kidney disease with stage 1 through stage 4 chronic kidney disease, or unspecified chronic kidney disease; N18.3 Chronic kidney disease, stage 3 (moderate); F17.210 Nicotine dependence, cigarettes, uncomplicated; Z82.5 Family history of asthma and other chronic lower respiratory diseases; Z83.3 Family history of diabetes mellitus; Z85.3 Personal history of malignant neoplasm of breast; Z86.14 Personal history of Methicillin resistant Staphylococcus aureus infection
CPT/HCPCS: 36415; 36600; 93458; 96361; 96374; 99285; J3490; 33285; 70450; 71045; 80048; 80053; 80061; 80307; 82803; 83605; 83735; 83880; 84484; 85025; 85520; 85610; 93005; 93306; 99156; C1764; C1769; C1894; G0378; J1644; J2250; J2405; J3010; C9113; J2270; J2310; J3475; J7030; J7050; Q9967

== ENCOUNTER 2019-05-08 17:54 | Emergency (ER) | payer OTHER ==
[~2019-05-08] VITALS: Ht 165.1 cm; Wt 84.0 kg
[~2019-05-08 17:54] MED LIST changes: +ASPI-650 PO; +ATOR-2 PO; +METO25TA35 PO
--- NOTE | 2019-05-08 18:15 | NUR ---
NA X 1
[2019-05-08 18:29] VITALS: BP 157/111
--- NOTE | 2019-05-08 18:52 | NUR ---
NA X 1 AT 1850
--- NOTE | 2019-05-08 19:45 | NUR ---
PT HERE WITH C/O RIGHT SIDED RIB PAIN AFTER "BEING REVIVED ON THE AFTER A HEART ATTACK."
--- NOTE | 2019-05-08 20:04 | NUR ---
PT GIVEN IS.
--- NOTE | 2019-05-08 20:34 | NUR ---
Patient/Caregiver given discharge instructions and they have confirmed that they understand the instructions. Patient ambulatory with steady gait.
== END 2019-05-08 20:38 | disposition home or self-care (01) ==
LOC: ED 19:50
DX: S22.42XA Multiple fractures of ribs, left side, initial encounter for closed fracture (principal); I10 Essential (primary) hypertension; E11.9 Type 2 diabetes mellitus without complications; Z90.10 Acquired absence of unspecified breast and nipple; X58.XXXA Exposure to other specified factors, initial encounter; Y93.89 Activity, other specified; Y92.89 Other specified places as the place of occurrence of the external cause; Y99.8 Other external cause status
CPT/HCPCS: 99283

== ENCOUNTER 2019-06-14 03:05 | Emergency (ER) | payer OTHER ==
[~2019-06-14] VITALS: Ht 165.1 cm; Wt 86.1 kg
[2019-06-14] MEDS ORDERED: MORPHINE SULFATE 4 MG/ML, 1ML IVPush PRN (03:30)
[2019-06-14] MEDS ORDERED: ONDANSETRON 2MG/ML, 2ML IVPush ONE (03:30)
[2019-06-14] MEDS ORDERED: MORPHINE SULFATE 4 MG/ML, 1ML ONE (03:33)
[2019-06-14] MEDS ORDERED: ONDANSETRON 2MG/ML, 2ML ONE (03:33)
--- NOTE | 2019-06-14 04:00 | NUR ---
PLACED VITALS SIGNS AND JOB SERVICE CONSULTANT, MEDICATED PER MAY. SAFETY PRECAUTIONS IN PLACE. CALL LIGHT WITHIN PT'S REACH.
[2019-06-14 04:01] LABS: BASOPHILS # (AUTO) 0.02 x10^3/uL (0-0.1); BASOPHILS % (AUTO) 0 % (0-1); EOSINOPHILS # (AUTO) 0.24 x10^3/uL (0-0.4); EOSINOPHILS % (AUTO) 3 % (1-7); LYMPHOCYTES # (AUTO) 1.91 x10^3/uL (1-3.4); LYMPHOCYTES % (AUTO) 28 % (22-44); MD NO; MEAN CORPUSCULAR HEMOGLOBIN 31.5 pg (27.0-34.8); MEAN CORPUSCULAR HGB CONC 34.2 g/dL (32.4-35.8); MEAN PLATELET VOLUME 7.4 fL (7.4-10.4); MONOCYTES # (AUTO) 0.55 x10^3/uL (0.2-0.8); MONOCYTES % (AUTO) 8 % (2-9); NEUTROPHILS # (AUTO) 4.25 x10^3/uL (1.8-6.8); NEUTROPHILS % (AUTO) 61 % (42-75); PLATELET COUNT 315 x10^3/uL (130-400); RED CELL DISTRIBUTION WIDTH 12.8 % (9.6-15.2)
[2019-06-14 04:05] LABS: ANION GAP 6 mmol/L (5-15); CALCIUM 9.7 mg/dL (8.5-10.1); CHLORIDE 107 mmol/L (98-107); CREATININE 0.99 mg/dL (0.55-1.02)
[2019-06-14 04:06] LABS: ALBUMIN 3.9 g/dL (3.4-5.0)
[2019-06-14 04:10] LABS: TROPONIN I < 0.015 ng/mL (0.000-0.045)
--- NOTE | 2019-06-14 04:29 | NUR ---
PT BACK FROM CT. SAFETY FALL PRECAUTIONS IN PLACE.
[2019-06-14] MEDS ORDERED: OMNIPAQUE 350 MG/ML, 100ML BOTTLE ONE (04:37)
--- NOTE | 2019-06-14 05:05 | NUR ---
BOND TRADER DR. STEPHENIE DARLING AT BEDSIDE.
[2019-06-14 05:59] VITALS: BP 129/87
== END 2019-06-14 06:04 | disposition home or self-care (01) ==
LOC: ED 03:31
DX: S22.42XA Multiple fractures of ribs, left side, initial encounter for closed fracture (principal); R07.89 Other chest pain; I10 Essential (primary) hypertension; E11.9 Type 2 diabetes mellitus without complications; F17.200 Nicotine dependence, unspecified, uncomplicated; Z85.3 Personal history of malignant neoplasm of breast; X58.XXXA Exposure to other specified factors, initial encounter; Y93.89 Activity, other specified; Y92.89 Other specified places as the place of occurrence of the external cause; Y99.8 Other external cause status
CPT/HCPCS: 36415; 71275; 80048; 82040; 83880; 84484; 85025; 93005; 96374; 96375; 99285; J2270; J2405; Q9967

== ENCOUNTER 2019-06-16 10:43 | Emergency (ER) | payer OTHER ==
[~2019-06-16] VITALS: Ht 165.1 cm; Wt 84.9 kg
[2019-06-16 10:47] VITALS: BP 154/75
[2019-06-16] MEDS ORDERED: KETOROLAC 30 MG/1 ML ONE (11:11)
[2019-06-16] MEDS ORDERED: KETOROLAC 30 MG/1 ML IM ONE (11:30)
== END 2019-06-16 11:44 | disposition home or self-care (01) ==
LOC: ED 11:08
DX: R07.89 Other chest pain (principal); I10 Essential (primary) hypertension; F17.200 Nicotine dependence, unspecified, uncomplicated; Z85.3 Personal history of malignant neoplasm of breast
CPT/HCPCS: 96372; 99283; J1885

== ENCOUNTER 2019-10-22 11:40 | Emergency (ER) | payer OTHER ==
[~2019-10-22] VITALS: Ht 165.1 cm; Wt 83.9 kg
[2019-10-22] MEDS ORDERED: ONDANSETRON 2MG/ML, 2ML ONE (12:36)
[2019-10-22] MEDS ORDERED: MORPHINE SULFATE 4 MG/ML, 1ML ONE (12:37)
--- NOTE | 2019-10-22 12:49 | NUR ---
PT CAME IN CO OF RUQ PAIN THAT STARTED LAST NIGHT. SHE SAYS IT GET WORSE WHEN SHE EATS. PT IS TO REMAIN NPO FOR NOW. PT MEDCIATED PER MAY. UA SENT. LABS DRAWN. US IN WITH PT AT THIS TIME
[2019-10-22 12:56] LABS: BASOPHILS # (AUTO) 0.03 x10^3/uL (0-0.1); BASOPHILS % (AUTO) 0 % (0-1); EOSINOPHILS # (AUTO) 0.33 x10^3/uL (0-0.4); EOSINOPHILS % (AUTO) 5 % (1-7); LYMPHOCYTES # (AUTO) 1.81 x10^3/uL (1-3.4); LYMPHOCYTES % (AUTO) 27 % (22-44); MD NO; MEAN CORPUSCULAR HEMOGLOBIN 32.3 pg (27.0-34.8); MEAN CORPUSCULAR HGB CONC 34.2 g/dL (32.4-35.8); MEAN CORPUSCULAR VOLUME 94.4 fL (80-100); MEAN PLATELET VOLUME 7.8 fL (7.4-10.4); MONOCYTES # (AUTO) 0.45 x10^3/uL (0.2-0.8); MONOCYTES % (AUTO) 7 % (2-9); NEUTROPHILS # (AUTO) 4.08 x10^3/uL (1.8-6.8); NEUTROPHILS % (AUTO) 61 % (42-75); PLATELET COUNT 259 x10^3/uL (130-400); RED BLOOD COUNT 4.61 x10^6/uL (3.82-5.3); RED CELL DISTRIBUTION WIDTH 12.5 % (9.6-15.2)
[2019-10-22] MEDS ORDERED: SODIUM CHLORIDE FLUSH 10ML SYR IVF ONE (13:00)
[2019-10-22] MEDS ORDERED: ONDANSETRON 2MG/ML, 2ML IVPush ONE (13:00)
[2019-10-22] MEDS ORDERED: MORPHINE SULFATE 4 MG/ML, 1ML IVPush PRN (13:00)
[2019-10-22 13:04] LABS: ALANINE AMINOTRANSFERASE 27 U/L (12-78); ALBUMIN 3.6 g/dL (3.4-5.0); ANION GAP 4 mmol/L (5-15); CALCIUM 8.7 mg/dL (8.5-10.1); CHLORIDE 110 mmol/L (98-107); CREATININE 1.03 mg/dL (0.55-1.02)
[2019-10-22 13:06] LABS: ALKALINE PHOSPHATASE 74 U/L (45-117); BILIRUBIN,TOTAL 0.3 mg/dL (0.2-1.0); TOTAL PROTEIN 7.1 g/dL (6.4-8.2)
[2019-10-22 13:17] LABS: MICROSCOPIC INDICATED
[2019-10-22 13:37] VITALS: BP 137/88
--- NOTE | 2019-10-22 13:45 | NUR ---
PT REPORTS PAIN IMPROVMENT. UP FOR RECHECK AT THIS TIME
== END 2019-10-22 14:26 | disposition home or self-care (01) ==
LOC: ED 12:21
DX: K29.00 Acute gastritis without bleeding (principal); R10.11 Right upper quadrant pain; N26.1 Atrophy of kidney (terminal); E11.9 Type 2 diabetes mellitus without complications; I10 Essential (primary) hypertension
CPT/HCPCS: 36415; 76700; 80053; 81001; 83690; 85025; 87086; 96374; 96375; 99285; J2270; J2405

== ENCOUNTER 2019-11-03 23:59 | Emergency (ER) | payer OTHER ==
[~2019-11-03] VITALS: Ht 165.1 cm; Wt 83.1 kg
--- NOTE | 2019-11-04 00:43 | NUR ---
PT TO ROOM, URINE SPECIMEN COLLECTED AND SENT, PT REPORTS THAT FOR PAST WEEK HAS BEEN HAVING RUQ ABD PAIN, OCCURRS AFTER EATING, LAST APPROX 1 HOUR. BECAME WORSE TONIGHT AT WORK. URINE SPECIMEN COLLECTED AND SENT
[2019-11-04 00:53] LABS: MICROSCOPIC AUTO
[2019-11-04] MEDS ORDERED: SODIUM CHLORIDE FLUSH 10ML SYR IVF ONE (01:00)
--- NOTE | 2019-11-04 01:12 | NUR ---
Pt alert and resting on gurney. Pt reports nausea but no vomiting, and pain in her right upper stomach/flank. Pt reports she has a hx of UTI's but this doesn't feel like a usual one. VS retaken and stable. [place] provided. Lab at bedside for draw.
[2019-11-04 01:31] LABS: BASOPHILS # (AUTO) 0.03 x10^3/uL (0-0.1); BASOPHILS % (AUTO) 0 % (0-1); EOSINOPHILS # (AUTO) 0.37 x10^3/uL (0-0.4); EOSINOPHILS % (AUTO) 5 % (1-7); LYMPHOCYTES # (AUTO) 2.08 x10^3/uL (1-3.4); LYMPHOCYTES % (AUTO) 30 % (22-44); MD NO; MEAN CORPUSCULAR HEMOGLOBIN 31.7 pg (27.0-34.8); MEAN CORPUSCULAR HGB CONC 33.6 g/dL (32.4-35.8); MEAN CORPUSCULAR VOLUME 94.3 fL (80-100); MEAN PLATELET VOLUME 7.9 fL (7.4-10.4); MONOCYTES # (AUTO) 0.43 x10^3/uL (0.2-0.8); MONOCYTES % (AUTO) 6 % (2-9); NEUTROPHILS # (AUTO) 3.97 x10^3/uL (1.8-6.8); NEUTROPHILS % (AUTO) 58 % (42-75); PLATELET COUNT 257 x10^3/uL (130-400); RED BLOOD COUNT 4.47 x10^6/uL (3.82-5.3); RED CELL DISTRIBUTION WIDTH 12.2 % (9.6-15.2)
[2019-11-04 01:34] LABS: ALANINE AMINOTRANSFERASE 18 U/L (12-78); ALBUMIN 3.6 g/dL (3.4-5.0); ANION GAP 8 mmol/L (5-15); CALCIUM 9.2 mg/dL (8.5-10.1); CHLORIDE 108 mmol/L (98-107); CREATININE 1.39 mg/dL (0.55-1.02)
[2019-11-04 01:37] LABS: ALKALINE PHOSPHATASE 69 U/L (45-117); BILIRUBIN,TOTAL 0.3 mg/dL (0.2-1.0); TOTAL PROTEIN 7.2 g/dL (6.4-8.2)
[2019-11-04] MEDS ORDERED: MORPHINE SULFATE 4 MG/ML, 1ML ONE ×2 (01:43→03:49)
[2019-11-04] MEDS ORDERED: ONDANSETRON 2MG/ML, 2ML ONE (01:43)
[2019-11-04] MEDS: MORPHINE SULFATE 4 MG/ML, 1ML IVPush PRN ×2 (01:53→03:53)
[2019-11-04] MEDS ORDERED: ONDANSETRON 2MG/ML, 2ML IVPush ONE (02:00)
--- NOTE | 2019-11-04 02:01 | NUR ---
PIV placed. Pt medicated per MAY. Pt remains on pulse ox/HR monitor. Call light within reach.
--- NOTE | 2019-11-04 02:54 | NUR ---
Pt resting on neida. Pt reports improvement after nuclear medicine specialist. Chart up for re-eval.
[2019-11-04 03:53] VITALS: BP 127/85
--- NOTE | 2019-11-04 04:04 | NUR ---
Pt d/c'd to home care. Pt alert, oriented and in NAD. Pt educated on RX, home care, OTC's and follow-up. Pt ambulated out of ER. Pt son with her for transport home.
== END 2019-11-04 04:18 | disposition home or self-care (01) ==
LOC: ED 11-04 01:44
DX: N30.00 Acute cystitis without hematuria (principal); R10.11 Right upper quadrant pain; R11.2 Nausea with vomiting, unspecified; I10 Essential (primary) hypertension; E11.9 Type 2 diabetes mellitus without complications; F17.210 Nicotine dependence, cigarettes, uncomplicated
CPT/HCPCS: 36415; 80053; 81001; 83690; 85025; 87086; 96374; 96375; 96376; 99284; 99406; J2270; J2405

== ENCOUNTER 2019-12-09 21:58 | Emergency (ER) | payer OTHER ==
[~2019-12-09] VITALS: Ht 165.1 cm; Wt 82.7 kg
[~2019-12-09 21:58] MED LIST changes: -LISI1TAB19 PO; +LISI1TAB39 PO
--- NOTE | 2019-12-09 22:08 | NUR ---
PT GIVEN URINE CUP IN TRIAGE
[2019-12-09 22:43] LABS: BASOPHILS # (AUTO) 0.01 x10^3/uL (0-0.1); BASOPHILS % (AUTO) 0 % (0-1); EOSINOPHILS # (AUTO) 0.25 x10^3/uL (0-0.4); EOSINOPHILS % (AUTO) 3 % (1-7); LYMPHOCYTES # (AUTO) 1.32 x10^3/uL (1-3.4); LYMPHOCYTES % (AUTO) 17 % (22-44); MD NO; MEAN CORPUSCULAR HEMOGLOBIN 31.6 pg (27.0-34.8); MEAN PLATELET VOLUME 7.3 fL (7.4-10.4); MONOCYTES # (AUTO) 0.41 x10^3/uL (0.2-0.8); MONOCYTES % (AUTO) 5 % (2-9); NEUTROPHILS # (AUTO) 5.83 x10^3/uL (1.8-6.8); NEUTROPHILS % (AUTO) 75 % (42-75); PLATELET COUNT 278 x10^3/uL (130-400); RED BLOOD COUNT 4.63 x10^6/uL (3.82-5.3); RED CELL DISTRIBUTION WIDTH 12.5 % (9.6-15.2)
[2019-12-09 22:53] LABS: ALANINE AMINOTRANSFERASE 28 U/L (12-78); ALBUMIN 3.7 g/dL (3.4-5.0); ANION GAP 4 mmol/L (5-15); CALCIUM 9.1 mg/dL (8.5-10.1); CHLORIDE 108 mmol/L (98-107); CREATININE 1.09 mg/dL (0.55-1.02)
[2019-12-09 22:56] LABS: ALKALINE PHOSPHATASE 86 U/L (45-117); BILIRUBIN,TOTAL 0.5 mg/dL (0.2-1.0); TOTAL PROTEIN 7.3 g/dL (6.4-8.2)
[2019-12-10 00:24] LABS: MICROSCOPIC AUTO
[2019-12-10] MEDS ORDERED: ONDANSETRON ODT 4 MG ONE (01:17)
[2019-12-10] MEDS ORDERED: HYDROmorphone 1 MG/ML, 1ML INJ ONE (01:17)
[2019-12-10] MEDS ORDERED: HYDROmorphone 2 MG/ML, 1ML IM ONE (01:30)
[2019-12-10] MEDS ORDERED: ONDANSETRON ODT 4 MG PO ONE (01:30)
--- NOTE | 2019-12-10 02:00 | NUR ---
A&o x4, answering questions appropriately. States sudden onset LUQ pain starting this evening after eating divehi food. LUQ tender to palpation, no rebound tenderness noted. Abd soft, flat, nondistended. Also states 1 episode of diarrhea this evening. Denies urinary sx. Denies chest pain/SOB. Denies fever/chills. Ambulating independently, steady gait
[2019-12-10 03:10] VITALS: BP 139/72
--- NOTE | 2019-12-10 03:14 | NUR ---
D/c discussed with pt. Verbalizes understanding of meds and f/u care. Denies pain at this time. States spouse is coming to ED to pick her up. Ambulating independently, steady gait
== END 2019-12-10 03:15 | disposition home or self-care (01) ==
LOC: ED 22:28
DX: N30.00 Acute cystitis without hematuria (principal); I10 Essential (primary) hypertension; E11.9 Type 2 diabetes mellitus without complications; F17.210 Nicotine dependence, cigarettes, uncomplicated
CPT/HCPCS: 36415; 76700; 80053; 81001; 83690; 85025; 87086; 96372; 99284; J1170; Q0162

== ENCOUNTER 2019-12-17 23:31 | Emergency (ER) | payer OTHER ==
[~2019-12-17] VITALS: Ht 160 cm; Wt 80.7 kg
[2019-12-18] MEDS ORDERED: SODIUM CHLORIDE FLUSH 10ML SYR IVF ONE
[2019-12-18] MEDS ORDERED: SODIUM CHLORIDE 0.9% 1,000ML IVBOLUS ONE
[2019-12-18] MEDS ORDERED: ONDANSETRON 2MG/ML, 2ML IVPush ONE
[2019-12-18] MEDS ORDERED: MORPHINE SULFATE 4 MG/ML, 1ML IVPush PRN
[2019-12-18] MEDS ORDERED: MAALOX/HYOSCYAMINE/LIDOCAINE 45 ML BTL PO ONE
[2019-12-18] MEDS ORDERED: MORPHINE SULFATE 4 MG/ML, 1ML ONE (00:10)
[2019-12-18] MEDS ORDERED: MAALOX/HYOSCYAMINE/LIDOCAINE 45 ML BTL ONE (00:10)
[2019-12-18] MEDS ORDERED: ONDANSETRON 2MG/ML, 2ML ONE (00:10)
--- NOTE | 2019-12-18 00:27 | NUR ---
THIS PT WAS DIAGNOSED WITH A UTI "A COUPLE WEEKS AGO" STATES SHE TOOK HER ABX PERSCRIBED AND IS NOW FINISHED WITH THEM. PT COMPLAINS OF N/V/D X "2 WEEKS AT LEAST." PT LAYING IN BED, WATCHING TV, MEDICATED TO MAY. PT CONNECTED TO CARDIAC, BP AND O2 MONITORS. BEDRAILS UP X2, CALL LIGHT IN REACH. ALL NEEDS MET AT THIS TIME.
[2019-12-18 00:39] LABS: BASOPHILS % (AUTO) 1 % (0-1); EOSINOPHILS % (AUTO) 1 % (1-7); LYMPHOCYTES % (AUTO) 22 % (22-44); MEAN CORPUSCULAR HEMOGLOBIN 32.1 pg (27.0-34.8); MEAN CORPUSCULAR HGB CONC 34.1 g/dL (32.4-35.8); MEAN PLATELET VOLUME 7.3 fL (7.4-10.4); MONOCYTES % (AUTO) 6 % (2-9); NEUTROPHILS % (AUTO) 70 % (42-75); PLATELET COUNT 255 x10^3/uL (130-400); RED CELL DISTRIBUTION WIDTH 12.5 % (9.6-15.2)
[2019-12-18 00:44] LABS: MD NO
[2019-12-18 00:46] LABS: ALANINE AMINOTRANSFERASE 22 U/L (12-78); ANION GAP 7 mmol/L (5-15); CALCIUM 9.7 mg/dL (8.5-10.1); CHLORIDE 107 mmol/L (98-107); CREATININE 1.13 mg/dL (0.55-1.02)
[2019-12-18 00:48] LABS: ALKALINE PHOSPHATASE 73 U/L (45-117); BILIRUBIN,TOTAL 0.4 mg/dL (0.2-1.0)
[2019-12-18] MEDS ORDERED: HYDROcodone/APAP 5/325 TABLET ONE (01:16)
[2019-12-18 01:26] VITALS: BP 141/88
[2019-12-18] MEDS ORDERED: HYDROcodone/APAP 5/325 TABLET PO ONE (01:30)
--- NOTE | 2019-12-18 01:31 | NUR ---
Break RN: patient medicated per may. Discharge instructions given. All questions and concerns addressed. Patient ambulatory with a steady gait. Belongings with patient.
== END 2019-12-18 01:33 | disposition home or self-care (01) ==
LOC: ED 23:59
DX: R11.2 Nausea with vomiting, unspecified (principal); R10.11 Right upper quadrant pain; F17.210 Nicotine dependence, cigarettes, uncomplicated; E11.9 Type 2 diabetes mellitus without complications; I10 Essential (primary) hypertension; Z85.3 Personal history of malignant neoplasm of breast
CPT/HCPCS: 36415; 80053; 83690; 85025; 96361; 96374; 96375; 99284; 99406; J2270; J2405; J7030

== ENCOUNTER 2020-01-09 07:17 | Emergency (ER) | payer OTHER ==
[~2020-01-09] VITALS: Ht 165.1 cm; Wt 81.6 kg
[2020-01-09] MEDS ORDERED: MAALOX/HYOSCYAMINE/LIDOCAINE 45 ML BTL PO ONE (08:00)
[2020-01-09] MEDS ORDERED: SODIUM CHLORIDE 0.9% 1,000ML IVBOLUS ONE (08:00)
[2020-01-09] MEDS ORDERED: ONDANSETRON 2MG/ML, 2ML IVPush ONE (08:00)
[2020-01-09] MEDS ORDERED: SODIUM CHLORIDE FLUSH 10ML SYR IVF ONE (08:00)
[2020-01-09] MEDS ORDERED: FAMOTIDINE 20 MG/2 ML IV ONE (08:00)
[2020-01-09] MEDS ORDERED: ONDANSETRON 2MG/ML, 2ML ONE (08:10)
[2020-01-09] MEDS ORDERED: MORPHINE SULFATE 4 MG/ML, 1ML ONE ×2 (08:10→09:16)
[2020-01-09] MEDS ORDERED: MAALOX/HYOSCYAMINE/LIDOCAINE 45 ML BTL ONE (08:10)
[2020-01-09] MEDS ORDERED: FAMOTIDINE 20 MG/2 ML ONE (08:11)
[2020-01-09] MEDS: MORPHINE SULFATE 4 MG/ML, 1ML IVPush PRN ×2 (08:12→09:23)
--- NOTE | 2020-01-09 08:13 | NUR ---
RUQ ABD PAIN +NAUSEA "I ATE AT 0600 THIS MORNING AND IT STARTED HURTING". PT IN BED WITH CONT CARDAIC MONITOR, SPO2, BP Q 30 MIN SIDE RAILS UP X2, CALL LIGHT IN REACH. WENT OVER PLAN OF CARE FROM ORDER LIST, AGREES TO PLAN. EKG IN ROOM. 18G IV STARTED IN RIGHT AC WITH BLOOD DRAW. BLOOD SENT TO LAB. PT NOTIFIED THAT SHE NEEDS TO COLLECT AT URINE WHEN SHE CAN.
[2020-01-09 08:20] LABS: BASOPHILS % (AUTO) 1 % (0-1); EOSINOPHILS % (AUTO) 2 % (1-7); LYMPHOCYTES % (AUTO) 18 % (22-44); MEAN CORPUSCULAR HEMOGLOBIN 32.4 pg (27.0-34.8); MEAN CORPUSCULAR HGB CONC 34.3 g/dL (32.4-35.8); MEAN PLATELET VOLUME 7.7 fL (7.4-10.4); MONOCYTES % (AUTO) 5 % (2-9); NEUTROPHILS % (AUTO) 75 % (42-75); PLATELET COUNT 253 x10^3/uL (130-400); RED BLOOD COUNT 4.87 x10^6/uL (3.82-5.3); RED CELL DISTRIBUTION WIDTH 12.3 % (9.6-15.2)
[2020-01-09 08:24] LABS: MD NO
--- NOTE | 2020-01-09 08:33 | NUR ---
PT TO US
[2020-01-09 08:40] LABS: ALANINE AMINOTRANSFERASE 19 U/L (12-78); ALBUMIN 3.8 g/dL (3.4-5.0); ANION GAP 4 mmol/L (5-15); CALCIUM 9.5 mg/dL (8.5-10.1); CHLORIDE 106 mmol/L (98-107); CREATININE 1.11 mg/dL (0.55-1.02)
[2020-01-09 08:41] LABS: ALKALINE PHOSPHATASE 71 U/L (45-117); BILIRUBIN,TOTAL 0.4 mg/dL (0.2-1.0); TOTAL PROTEIN 7.6 g/dL (6.4-8.2)
--- NOTE | 2020-01-09 09:24 | NUR ---
URINE SENT TO LAB
[2020-01-09 10:25] VITALS: BP 125/83
[2020-01-09 10:47] LABS: MICROSCOPIC NOT IND
== END 2020-01-09 10:27 | disposition home or self-care (01) ==
LOC: ED 09:00
DX: R10.11 Right upper quadrant pain (principal); R11.2 Nausea with vomiting, unspecified; I10 Essential (primary) hypertension; E11.9 Type 2 diabetes mellitus without complications; Z90.89 Acquired absence of other organs; Z90.10 Acquired absence of unspecified breast and nipple
CPT/HCPCS: 36415; 76700; 80053; 81003; 83690; 85025; 93005; 96361; 96374; 96375; 96376; 99285; J2270; J2405; J7030

== ENCOUNTER 2020-01-16 06:26 | Emergency (ER) | payer OTHER ==
[~2020-01-16] VITALS: Ht 167.6 cm; Wt 75.6 kg
[~2020-01-16 06:26] MED LIST changes: -CIPR2.5D EACHEYE; +CIPR2.5D2 EACHEYE
[2020-01-16] MEDS ORDERED: NALOXONE 1 MG/ML, 2ML ONE ×2 (06:40→12:58)
--- NOTE | 2020-01-16 06:45 | NUR ---
pt given 2mg narcan with pt more alert and a/o x4 after. pt admited to snorting 1 blue m-30 pill last night.
--- NOTE | 2020-01-16 06:49 | NUR ---
no iv or b/p on L arm per pt breast cancer
--- NOTE | 2020-01-16 06:58 | NUR ---
REPORT TO CRISTELA RECIO
[2020-01-16] MEDS ORDERED: SODIUM CHLORIDE FLUSH 10ML SYR IVF ONE (07:00)
[2020-01-16] MEDS ORDERED: SODIUM CHLORIDE 0.9% 1,000ML IVBOLUS ONE (07:00)
[2020-01-16] MEDS ORDERED: PLEASE ENTER HEIGHT AND WEIGHT MC SCH (07:00)
[2020-01-16] MEDS ORDERED: NALOXONE 1 MG/ML, 2ML IVPush ONE ×2 (07:00→13:00)
[2020-01-16] MEDS ORDERED: ONDANSETRON 2MG/ML, 2ML IVPush ONE (07:00)
[2020-01-16 07:03] LABS: BASOPHILS % (AUTO) 1 % (0-1); EOSINOPHILS % (AUTO) 1 % (1-7); LYMPHOCYTES % (AUTO) 11 % (22-44); MEAN CORPUSCULAR HEMOGLOBIN 31.5 pg (27.0-34.8); MEAN CORPUSCULAR HGB CONC 32.8 g/dL (32.4-35.8); MEAN PLATELET VOLUME 7.9 fL (7.4-10.4); MONOCYTES % (AUTO) 5 % (2-9); NEUTROPHILS % (AUTO) 82 % (42-75); PLATELET COUNT 294 x10^3/uL (130-400); RED BLOOD COUNT 5.33 x10^6/uL (3.82-5.3); RED CELL DISTRIBUTION WIDTH 12.9 % (9.6-15.2)
[2020-01-16 07:14] LABS: ALANINE AMINOTRANSFERASE 39 U/L (12-78); ALBUMIN 3.9 g/dL (3.4-5.0); ANION GAP 7 mmol/L (5-15); CALCIUM 8.6 mg/dL (8.5-10.1); CHLORIDE 104 mmol/L (98-107); CREATININE 2.44 mg/dL (0.55-1.02); SALICYLATE LEVEL 1.9 mg/dL (2.8-20.0)
--- NOTE | 2020-01-16 07:15 | NUR ---
SBAR HAND-OFF REPORT RECEIVED FROM HEMAL DELAROSA. ASSUMING CARE OF PATIENT.
[2020-01-16 07:17] LABS: ALKALINE PHOSPHATASE 91 U/L (45-117); BILIRUBIN,TOTAL 0.3 mg/dL (0.2-1.0); TOTAL PROTEIN 8.2 g/dL (6.4-8.2); TROPONIN I < 0.015 ng/mL (0.000-0.045)
[2020-01-16] MEDS ORDERED: ONDANSETRON 2MG/ML, 2ML ONE (07:20)
--- NOTE | 2020-01-16 07:36 | NUR ---
pt medicated with zofran for nausea.
--- NOTE | 2020-01-16 07:39 | NUR ---
Teresa-Clay Tovar.
[2020-01-16 07:46] LABS: MD SCAN
[2020-01-16] MEDS ORDERED: LACTATED RINGERS 1,000 ML IV SCH (10:00)
[2020-01-16] MEDS ORDERED: LORazepam 2 MG/ML, 1ML ONE (10:07)
--- NOTE | 2020-01-16 10:20 | NUR ---
TASK RN: MEDICATED PER EMAR WITH ATIVAN (FOR AGITATION) AND LR IVF UPDATED ON ESTIMATED POC PRIMARY RN TO CLOSELY MONITOR FOR SEDATION PATIENT STILL REQUIRING OXYMASK AT 10L
[2020-01-16] MEDS ORDERED: LORazepam 2 MG/ML, 1ML IV ONE (10:30)
[2020-01-16] MEDS: LACTATED RINGERS 1,000 ML IV SCH ×2 (13:03→22:36)
[2020-01-16] MEDS ORDERED: NALOXONE 1 MG/ML, 2ML IVPush PRN (14:30)
--- NOTE | 2020-01-16 14:39 | NUR ---
BREAK RN: PT PLACED ON BEDPAN FOR DRUG SCREEN URINE COLLECTION. PT AWAKE AND ALERT, ASKING FOR FOOD. PT REPOSITIONED IN BED, SITTING UP AND PROVIDED WITH APPLE SAUCE PER REQUEST.
--- NOTE | 2020-01-16 16:32 | NUR ---
STRAIGHT CATH PERFORMED FOR UA AND UDS. VS UPDATED AND WNL.
[2020-01-16 16:53] LABS: MICROSCOPIC INDICATED
[2020-01-16 16:57] LABS: AMPHETAMINE SCREEN, URINE Negative (Negative); BARBITURATE SCREEN, URINE Negative (Negative); BENZODIAZEPINE SCREEN, URINE Negative (Negative); CANNABINOID SCREEN, URINE Negative (Negative); COCAINE SCREEN, URINE Negative (Negative); METHADONE SCREEN, URINE Negative (Negative); OPIATE SCREEN, URINE Negative (Negative)
[2020-01-16 17:26] LABS: TROPONIN I < 0.015 ng/mL (0.000-0.045)
[2020-01-16] MEDS: NALOXONE 8 MG in SODIUM CHLORIDE 0.9% 242 ML IV PRN (18:35)
[2020-01-16] MEDS ORDERED: HEPARIN 5,000 UNITS/ML, 1ML ONE (19:15)
--- NOTE | 2020-01-16 19:17 | NUR ---
REPORT RECEIVED FROM MARIMAR RECIO
[2020-01-16] MEDS: HEPARIN 5,000 UNITS/ML, 1ML SQ SCH (19:18)
--- NOTE | 2020-01-16 20:00 | NUR ---
PT RESTING ON [facility] BED. LETHARGIC, AROUSES TO VERBAL STIMULI. NALOXONE GTT RUNNING 0.6ML/HR. PT CONNECTED TO MONITORS, CALL LIGHT WITHIN REACH
--- NOTE | 2020-01-16 21:00 | NUR ---
PT RESTING ON [facility] BED. LETHARGIC, AROUSES TO VERBAL STIMULI. NALOXONE GTT RUNNING 0.6ML/HR. PT CONNECTED TO MONITORS, CALL LIGHT WITHIN REACH
--- NOTE | 2020-01-16 22:00 | NUR ---
PT SLEEPING ON HOSPITAL BED, NO NEEDS. CALL LIGHT WITHIN REACH, BED LOCKED AND IN LOWEST POSITION.
--- NOTE | 2020-01-16 23:00 | NUR ---
PT SLEEPING, AROUSES EASILY TO VERBAL STIMULI. A&0X4. NO NEEDS. IN HOSPITAL BED, CALL LIGHT WITHIN REACH
--- NOTE | 2020-01-17 00:16 | NUR ---
PT SLEEPING, AROUSES EASILY TO VERBAL STIMULI.
--- NOTE | 2020-01-17 01:37 | NUR ---
REQUESTING BEDPAN AND DRINKS
--- NOTE | 2020-01-17 02:00 | NUR ---
PT SLEEPING, CALL LIGHT WITHIN REACH
--- NOTE | 2020-01-17 02:59 | NUR ---
PT SLEEPING, CALL LIGHT WITHIN REACH
[2020-01-17] MEDS ORDERED: HEPARIN 5,000 UNITS/ML, 1ML ONE (03:19)
[2020-01-17] MEDS: HEPARIN 5,000 UNITS/ML, 1ML SQ SCH (03:22)
--- NOTE | 2020-01-17 04:00 | NUR ---
PT SLEEPING, CALL LIGHT WITHIN REACH
--- NOTE | 2020-01-17 05:34 | NUR ---
PT MORE AWAKE, ASKING FOR SNACKS AND STATING SHE WANTS TO GO HOME. PT EDUCATED ON NEEDING OXYGEN, CURRENT MEDICATIONS RUNNING THROUGH HER IV, AND HIGH RISK OF IF SHE GOES HOME AND BEGINS USING NARCOTICS. PT VERBALIZES UNDERSTANDING AND AGREEABLE TO POC.
[2020-01-17 05:41] LABS: ANION GAP 4 mmol/L (5-15); CALCIUM 8.9 mg/dL (8.5-10.1); CHLORIDE 113 mmol/L (98-107); CREATININE 1.23 mg/dL (0.55-1.02)
[2020-01-17 05:45] LABS: BASOPHILS % (AUTO) 0 % (0-1); EOSINOPHILS % (AUTO) 1 % (1-7); LYMPHOCYTES % (AUTO) 13 % (22-44); MEAN CORPUSCULAR HEMOGLOBIN 31.1 pg (27.0-34.8); MEAN PLATELET VOLUME 7.7 fL (7.4-10.4); MONOCYTES % (AUTO) 6 % (2-9); NEUTROPHILS % (AUTO) 81 % (42-75); PLATELET COUNT 181 x10^3/uL (130-400); RED BLOOD COUNT 4.51 x10^6/uL (3.82-5.3); RED CELL DISTRIBUTION WIDTH 12.9 % (9.6-15.2)
[2020-01-17 05:50] LABS: MD NO
--- NOTE | 2020-01-17 06:12 | NUR ---
PT UP TO BSC. SBA
--- NOTE | 2020-01-17 06:57 | NUR ---
REPORT GIVEN TO ALEX RECIO
--- NOTE | 2020-01-17 07:03 | NUR ---
I AM ASSUMING CARE OF THIS PT FROM KASSANDRA (HEMAL). SBAR WAS EXCHANGED AT THE BEDSIDE.
[2020-01-17] MEDS: NALOXONE 8 MG in SODIUM CHLORIDE 0.9% 242 ML IV PRN ×2 (07:25→08:46)
--- NOTE | 2020-01-17 07:37 | NUR ---
cardiac rhythm strip printed and placed on chart
--- NOTE | 2020-01-17 08:46 | NUR ---
PT HAS BEEN DISCONNECTED FROM GTT AND HAS BEEN APPROPRIATE ON ROOM AIR FOR 1+ HR. [facility] AT THE BEDSIDE, AND AGREEABLE TO WEAN TOWARDS D/C.
--- NOTE | 2020-01-17 09:11 | NUR ---
SHE (RN) IS ASSUMING CARE OF THIS PT AT THIS TIME. SBAR WAS EXCHANGED AT THE BEDSIDE.
--- NOTE | 2020-01-17 09:30 | NUR ---
PT ATE 100% OF BREAKFAST, STATES, I WANT TO LEAVE. EXPLAINED NEED FOR DISCHARGE ORDER. COFFEE AND AM TOOTHBRUSH WITH TOOTHPASTE GIVEN. PT DESAT WITH OXYGEN OFF, 92% ON 3LNC. EXPLAIN TO KEEP ON. PT STATES, I WANT TO THE MASK ON. EXPLAIN IS PT WANTS TO GO HOME, NEED TO WEAN OFF OXYGEN. PT VERBALIZED UNDERSTANDING
--- NOTE | 2020-01-17 10:21 | NUR ---
JUMPBASTING ARMHOLE BASTER: [facility] ON-CALL (DR GIBSON) PAGED.
--- NOTE | 2020-01-17 10:55 | NUR ---
PT REQUESTING COFFEE, GAVE A CUP. PT STATES SHE WANTS TO LEAVE. EXPLAINED THAT THIS RN HAS A CALL OUT TO MD. PT VERBALIZED UNDERSTANDING
--- NOTE | 2020-01-17 11:11 | NUR ---
STITCH BONDING MACHINE TENDER HELPER: 2ND PAGE FOR BHAVIN DARLING
--- NOTE | 2020-01-17 11:17 | NUR ---
DR. GIBSON FROM [facility] CALLED BACK, EXPLAINED PT WANT TO LEAVE AMA. DR. GIBSON STATES, SHE WILL PUT IN D/C ORDERS
[2020-01-17] MEDS ORDERED: KETOROLAC 30 MG/1 ML ONE (11:28)
[2020-01-17] MEDS ORDERED: KETOROLAC 30 MG/1 ML IVPush SCH (11:30)
[2020-01-17 11:35] VITALS: BP 113/68
--- NOTE | 2020-01-17 11:35 | NUR ---
BOTH IV D/C TIP INTACT. PT GETTING DRESSED. EXPLAINED DC PAPERWORK WILL BE READY SOON. PT VERBALZIED UNDERSTANDING
--- NOTE | 2020-01-17 12:02 | NUR ---
DC INSTRUCTIONS COMPLETED BY SELMA RECIO, FROM ICU. PT VERBALIZED DC INSTRUCTIONS
== END 2020-01-17 12:05 ==
LOC: ED 07:19 → UNDOADMIN 09:03 → EDIP 09:03 → ED 01-17 12:05
DX: T40.601A Poisoning by unspecified narcotics, accidental (unintentional), initial encounter (principal); N28.9 Disorder of kidney and ureter, unspecified; E11.65 Type 2 diabetes mellitus with hyperglycemia; Z85.3 Personal history of malignant neoplasm of breast; J45.909 Unspecified asthma, uncomplicated; I11.0 Hypertensive heart disease with heart failure; I50.9 Heart failure, unspecified; I25.2 Old myocardial infarction
CPT/HCPCS: 36415; 36600; 71045; 71111; 76700; 80048; 80053; 80307; 81001; 82140; 82803; 83605; 83690; 84484; 85025; 93005; 96361; 96372; 96374; 96375; 96376; 99285; J1644; J1885; J2060; J2310; J2405; J7030; J7050; J7120

== ENCOUNTER 2020-03-24 08:40 | Emergency (ER) | payer OTHER ==
[~2020-03-24] VITALS: Ht 165.1 cm; Wt 79.6 kg
[~2020-03-24 08:40] MED LIST changes: -CLIN300C8 PO; +CLIN300C9 PO
--- NOTE | 2020-03-24 08:49 | NUR ---
INITIAL PT CONTACT. PT PRESENTS TO ED C/O SHARP RUQ ABD AFTER EATING BREAKFAST THIS MORNING, ALSO C/O NAUSEA. DENIES VOMITING. PT SITTING UPRIGHT ON GURNEY AND PLACED ON CONTINUOUS MONITORING. ERP AT BEDSIDE. CALL LIGHT AND PERSONAL BELONGINGS WITHIN REACH.
[2020-03-24] MEDS ORDERED: SODIUM CHLORIDE 0.9% 1,000ML IVBOLUS ONE (09:00)
[2020-03-24] MEDS ORDERED: ONDANSETRON 2MG/ML, 2ML IVPush ONE (09:00)
[2020-03-24] MEDS ORDERED: FAMOTIDINE 20 MG/2 ML IV ONE (09:00)
[2020-03-24] MEDS ORDERED: MORPHINE SULFATE 4 MG/ML, 1ML ONE ×2 (09:10→10:09)
[2020-03-24] MEDS ORDERED: ONDANSETRON 2MG/ML, 2ML ONE (09:10)
[2020-03-24] MEDS ORDERED: FAMOTIDINE 20 MG/2 ML ONE (09:11)
[2020-03-24] MEDS: MORPHINE SULFATE 4 MG/ML, 1ML IVPush PRN ×2 (09:13→10:13)
[2020-03-24 09:26] LABS: BASOPHILS % (AUTO) 1 % (0-1); EOSINOPHILS % (AUTO) 4 % (1-7); LYMPHOCYTES % (AUTO) 26 % (22-44); MEAN CORPUSCULAR HEMOGLOBIN 32.2 pg (27.0-34.8); MEAN CORPUSCULAR HGB CONC 34.4 g/dL (32.4-35.8); MEAN PLATELET VOLUME 7.6 fL (7.4-10.4); MONOCYTES % (AUTO) 6 % (2-9); NEUTROPHILS % (AUTO) 64 % (42-75); PLATELET COUNT 256 x10^3/uL (130-400); RED BLOOD COUNT 4.64 x10^6/uL (3.82-5.3); RED CELL DISTRIBUTION WIDTH 12.8 % (9.6-15.2)
[2020-03-24 09:29] LABS: MD NO
[2020-03-24] MEDS ORDERED: LORazepam 2 MG/ML, 1ML IVPush PRN (09:30)
--- NOTE | 2020-03-24 09:31 | NUR ---
US AT BEDSIDE
[2020-03-24 09:36] LABS: ALANINE AMINOTRANSFERASE 24 U/L (12-78); ALBUMIN 4.2 g/dL (3.4-5.0); ANION GAP 4 mmol/L (5-15); CALCIUM 9.7 mg/dL (8.5-10.1); CHLORIDE 108 mmol/L (98-107); CREATININE 1.31 mg/dL (0.55-1.02)
[2020-03-24 09:38] LABS: ALKALINE PHOSPHATASE 88 U/L (45-117); BILIRUBIN,TOTAL 0.4 mg/dL (0.2-1.0); TOTAL PROTEIN 7.6 g/dL (6.4-8.2)
--- NOTE | 2020-03-24 09:53 | NUR ---
PT UP TO BATHROOM TO PROVIDE URINE SAMPLE. PT REPORTS DECREASED PAIN FOLLOWING INDUSTRIAL MACHINE SYSTEM TECHNICIAN. PT PROVIDED WARM BLANKET, NO ADDITIONAL NEEDS AT THIS TIME.
[2020-03-24] MEDS ORDERED: PROCHLORPERAZINE 5 MG/ML, 2ML ONE (10:09)
--- NOTE | 2020-03-24 10:10 | NUR ---
Note [place] in EDM - 03/24/20 at 1026 by TYRON PT REPORTS "FEELING ANXIOUS AND CANT SIT STILL, CAN I HAVE SOME MEDICATION FOR THAT?". ERP NOTIFIED AND PT MEDICATED PER EMAR.
[2020-03-24 10:14] LABS: MICROSCOPIC NOT IND
[2020-03-24] MEDS ORDERED: PROCHLORPERAZINE 5 MG/ML, 2ML IVPush ONE (10:30)
[2020-03-24 10:47] VITALS: BP 132/90
--- NOTE | 2020-03-24 10:53 | NUR ---
Patient given discharge instructions and they have confirmed that they understand the instructions. Patient ambulatory with steady gait.
== END 2020-03-24 10:58 | disposition home or self-care (01) ==
LOC: ED 10:19
DX: K29.00 Acute gastritis without bleeding (principal); I10 Essential (primary) hypertension; E11.9 Type 2 diabetes mellitus without complications
CPT/HCPCS: 36415; 76700; 80053; 81003; 83690; 85025; 96374; 96375; 96376; 99284; J0780; J2270; J2405; J7030; 96361

== ENCOUNTER 2020-04-08 08:17 | Emergency (ER) | payer OTHER ==
[~2020-04-08] VITALS: Ht 165.1 cm; Wt 78.5 kg
--- NOTE | 2020-04-08 08:36 | NUR ---
PT REPORTS HAVING EGGS AND SAUSAGE FOR BREAKFAST TODAY WHEN SHE DEVELOPED RIGHT UPPER AND PAIN (SHARP) RADIATING TO HER RIGHT FLANK WITH NAUSEA. PT REPORTS HAVE PAIN AFTER EATING ON AND OFF FOR 1 YEAR. PT IN BED IN GOWN WITH CONT SPO2, BP Q 30 MIN, SIDE RAILS UP X2, CALL LIGHT IN REACH
[2020-04-08] MEDS ORDERED: ONDANSETRON 2MG/ML, 2ML ONE (08:49)
[2020-04-08] MEDS ORDERED: MORPHINE SULFATE 4 MG/ML, 1ML ONE ×2 (08:49→10:34)
[2020-04-08] MEDS ORDERED: FAMOTIDINE 20 MG/2 ML ONE (08:50)
[2020-04-08] MEDS: MORPHINE SULFATE 4 MG/ML, 1ML IVPush PRN ×2 (08:51→10:37)
[2020-04-08] MEDS ORDERED: FAMOTIDINE 20 MG/2 ML IV ONE (09:00)
[2020-04-08] MEDS ORDERED: SODIUM CHLORIDE 0.9% 1,000ML IVBOLUS ONE (09:00)
[2020-04-08] MEDS ORDERED: ONDANSETRON 2MG/ML, 2ML IVPush ONE (09:00)
[2020-04-08 09:07] LABS: BASOPHILS % (AUTO) 1 % (0-1); EOSINOPHILS % (AUTO) 2 % (1-7); LYMPHOCYTES % (AUTO) 19 % (22-44); MEAN CORPUSCULAR HEMOGLOBIN 31.5 pg (27.0-34.8); MEAN CORPUSCULAR HGB CONC 33.9 g/dL (32.4-35.8); MEAN PLATELET VOLUME 7.5 fL (7.4-10.4); MONOCYTES % (AUTO) 7 % (2-9); NEUTROPHILS % (AUTO) 72 % (42-75); PLATELET COUNT 273 x10^3/uL (130-400); RED BLOOD COUNT 4.89 x10^6/uL (3.82-5.3)
[2020-04-08 09:09] LABS: MD NO
--- NOTE | 2020-04-08 09:20 | NUR ---
Pt aware of need for UA. US at bedside now.
[2020-04-08 09:33] LABS: ALBUMIN 3.8 g/dL (3.4-5.0); CALCIUM 9.6 mg/dL (8.5-10.1); CHLORIDE 108 mmol/L (98-107)
[2020-04-08 09:39] LABS: ALANINE AMINOTRANSFERASE 21 U/L (12-78); ALKALINE PHOSPHATASE 86 U/L (45-117); ANION GAP 8 mmol/L (5-15); BILIRUBIN,TOTAL 0.7 mg/dL (0.2-1.0); CREATININE 1.61 mg/dL (0.55-1.02); TOTAL PROTEIN 7.6 g/dL (6.4-8.2)
--- NOTE | 2020-04-08 10:40 | NUR ---
Pt ambulatory to bathroom with steady gait for UA. Pt requested more pain meds after US, medicated to MAY.
[2020-04-08 10:55] LABS: MICROSCOPIC NOT IND
[2020-04-08 11:16] VITALS: BP 126/81
== END 2020-04-08 11:25 | disposition home or self-care (01) ==
LOC: ED 08:37
DX: K29.00 Acute gastritis without bleeding (principal); R10.11 Right upper quadrant pain; R11.0 Nausea; I10 Essential (primary) hypertension; F17.290 Nicotine dependence, other tobacco product, uncomplicated; Z85.3 Personal history of malignant neoplasm of breast
CPT/HCPCS: 36415; 76700; 80053; 81003; 83690; 85025; 96361; 96374; 96375; 96376; 99284; J2270; J2405; J7030

== ENCOUNTER 2020-04-22 11:24 | Emergency (ER) | payer OTHER ==
[~2020-04-22] VITALS: Ht 165.1 cm; Wt 77.8 kg
[~2020-04-22 11:24] MED LIST changes: -ASPI-650 PO; +ASPI325T20 PO
[2020-04-22] MEDS ORDERED: ONDANSETRON ODT 4 MG PO ONE (12:00)
[2020-04-22] MEDS ORDERED: ONDANSETRON ODT 4 MG ONE (12:05)
[2020-04-22] MEDS ORDERED: ACETAMINOPHEN 325 MG TABLET ONE (12:08)
--- NOTE | 2020-04-22 12:12 | NUR ---
TASK RN: THIS IS A 59 YO F W/ C/O RUQ ABD PAIN STARTING TODAY. PT REPORTS NAUSEA DENIES VOMITING. PT RESTING ON GURNEY W/ CALL LIGHT IN REACH AND SIDE RAILS UPX2. RESP EVEN AND UNLABORED, BRYSON. US AT BEDSIDE. AWAITING LAB DRAW.
[2020-04-22] MEDS ORDERED: ACETAMINOPHEN 325 MG TABLET PO ONE (12:30)
--- NOTE | 2020-04-22 12:44 | NUR ---
TASK RN: PT AMBULATED TO THE BR W/ A STEADY GAIT. URINE CUP PROVIDED.
--- NOTE | 2020-04-22 12:52 | NUR ---
TASK RN: PT RETURNED TO ROOM W/O INCIDENT. URINE COLLECTED AND SENT TO LAB.
--- NOTE | 2020-04-22 12:54 | NUR ---
Pt refusing labs at this time. Pt educated about need for blood work for a better understanding of what's going on today. Pt still refusing. updated.
[2020-04-22 12:58] VITALS: BP 143/103
[2020-04-22 13:03] LABS: MICROSCOPIC INDICATED
== END 2020-04-22 13:12 | disposition left against medical advice (07) ==
LOC: ED 11:48
DX: R10.11 Right upper quadrant pain (principal); R11.0 Nausea; R00.0 Tachycardia, unspecified; I10 Essential (primary) hypertension; E11.9 Type 2 diabetes mellitus without complications; Z90.89 Acquired absence of other organs; Z90.10 Acquired absence of unspecified breast and nipple
CPT/HCPCS: 76700; 81001; 87086; 93005; 99285; Q0162

== ENCOUNTER 2020-09-06 20:45 | Emergency (ER) | payer OTHER ==
[~2020-09-06] VITALS: Ht 165.1 cm; Wt 68.6 kg
--- NOTE | 2020-09-06 20:51 | NUR ---
DIONISIO FROM HOME AT [address] [facility] IN [place]. PT C/O OF RUQ PAIN THAT RADIATES TO BACK SINCE 1900 RIGHT AFTER PT ATE FOOD. PT REPORTS NAUSEA AND VOMITING. PT STATES THIS HAPPENED 6 MONTHS AGO WELL. DENIES CP, AND SOB. PT RECEIEVED 500 ML NS, 4MG ZOFRAN AND 100 MCG FENTANYL APPRAISER AUDITOR FROM EMS. PT ATTACHED TO CARD/SP02/BP MONITORS. VSS. NADN. BED IN LOW POSITION, RAILS ENGAGED, CALL LIGHT ON LAP. WCTM
[2020-09-06] MEDS ORDERED: MORPHINE SULFATE 4 MG/ML, 1ML IVPush PRN (21:00)
[2020-09-06] MEDS ORDERED: ONDANSETRON 2MG/ML, 2ML IVPush ONE (21:00)
[2020-09-06 21:17] LABS: BASOPHILS % (AUTO) 1 % (0-1); EOSINOPHILS % (AUTO) 1 % (1-7); LYMPHOCYTES % (AUTO) 16 % (22-44); MEAN CORPUSCULAR HEMOGLOBIN 31.5 pg (27.0-34.8); MEAN CORPUSCULAR HGB CONC 34.1 g/dL (32.4-35.8); MEAN PLATELET VOLUME 7.8 fL (7.4-10.4); MONOCYTES % (AUTO) 8 % (2-9); NEUTROPHILS % (AUTO) 75 % (42-75); PLATELET COUNT 268 x10^3/uL (130-400); RED BLOOD COUNT 5.08 x10^6/uL (3.82-5.3); RED CELL DISTRIBUTION WIDTH 13.3 % (9.6-15.2)
[2020-09-06] MEDS ORDERED: MORPHINE SULFATE 4 MG/ML, 1ML ONE (21:24)
[2020-09-06] MEDS ORDERED: ONDANSETRON 2MG/ML, 2ML ONE (21:24)
[2020-09-06 21:29] LABS: ALANINE AMINOTRANSFERASE 28 U/L (12-78); ALBUMIN 3.4 g/dL (3.4-5.0); ANION GAP 6 mmol/L (5-15); CALCIUM 8.9 mg/dL (8.5-10.1); CHLORIDE 106 mmol/L (98-107)
[2020-09-06 21:32] LABS: ALKALINE PHOSPHATASE 60 U/L (45-117); BILIRUBIN,TOTAL 0.6 mg/dL (0.2-1.0); CREATININE 1.03 mg/dL (0.55-1.02); TOTAL PROTEIN 7.3 g/dL (6.4-8.2)
--- NOTE | 2020-09-06 21:43 | NUR ---
Patient is resting comfortably in bed. Bed in lowest, rails engaged, call light on lap. Vital Signs within normal limits. WCTM.
--- NOTE | 2020-09-06 21:59 | NUR ---
PT AMBULATED TO BATHOM WITH STEADY GAIT. BACK IN ROOM, ATTACHED TO MONITORS. VSS. MASSEY. FAMILIA.
[2020-09-06 22:02] LABS: MICROSCOPIC INDICATED
--- NOTE | 2020-09-06 22:06 | NUR ---
PT OFF UNIT IN IMAGING.
[2020-09-06] MEDS ORDERED: NAPR-685 PO (22:58)
[2020-09-06] MEDS ORDERED: CEFT1VIA13 IM (22:58)
[2020-09-07 00:31] VITALS: BP 126/73
--- NOTE | 2020-09-07 00:31 | NUR ---
Patient given discharge instructions and they have confirmed that they understand the instructions. Patient ambulatory with steady gait. NAD, all questions answered appropriately, denies additional needs at this time. No personal belongings left in room after discharge. PROVIDED TAXI VOUCHER FOR SAFE DC Addendum: 09/07/20 at 0032 by RITO DC BY NELLI RN
== END 2020-09-07 00:33 | disposition home or self-care (01) ==
LOC: ED 23:24
DX: R10.11 Right upper quadrant pain (principal); R11.10 Vomiting, unspecified; R19.7 Diarrhea, unspecified; I10 Essential (primary) hypertension; E11.9 Type 2 diabetes mellitus without complications; F17.200 Nicotine dependence, unspecified, uncomplicated; Z85.3 Personal history of malignant neoplasm of breast; Z90.89 Acquired absence of other organs
CPT/HCPCS: 36415; 74177; 80053; 81001; 83690; 85025; 87086; 96374; 96375; 99285; J2270; J2405

== ENCOUNTER 2020-09-07 20:36 | Emergency (ER) | payer OTHER ==
[~2020-09-07] VITALS: Ht 165.1 cm; Wt 74.0 kg
[~2020-09-07 20:36] MED LIST changes: +CEFT1VIA13 IM; +NAPR-685 PO; +OMNIPAQUE 350 MG/ML, 100ML BOTTLE ONE
--- NOTE | 2020-09-07 21:00 | NUR ---
PT HERE FOR C/O RUQ ABD PAIN AFTER EATING X1 MONTH. DR. YOUNG AT BEDSIDE FOR EVAL.
[2020-09-07 21:16] LABS: BASOPHILS % (AUTO) 1 % (0-1); EOSINOPHILS % (AUTO) 1 % (1-7); LYMPHOCYTES % (AUTO) 24 % (22-44); MEAN CORPUSCULAR HEMOGLOBIN 31.8 pg (27.0-34.8); MEAN CORPUSCULAR HGB CONC 34.1 g/dL (32.4-35.8); MEAN PLATELET VOLUME 7.6 fL (7.4-10.4); MONOCYTES % (AUTO) 7 % (2-9); NEUTROPHILS % (AUTO) 67 % (42-75); PLATELET COUNT 270 x10^3/uL (130-400); RED BLOOD COUNT 5.11 x10^6/uL (3.82-5.3); RED CELL DISTRIBUTION WIDTH 13.3 % (9.6-15.2)
[2020-09-07 21:28] LABS: ALANINE AMINOTRANSFERASE 28 U/L (12-78); ALBUMIN 3.5 g/dL (3.4-5.0); ANION GAP 7 mmol/L (5-15); CHLORIDE 106 mmol/L (98-107); CREATININE 1.35 mg/dL (0.55-1.02)
[2020-09-07] MEDS ORDERED: ONDANSETRON ODT 4 MG ONE (21:28)
[2020-09-07] MEDS ORDERED: ONDANSETRON ODT 4 MG PO ONE (21:30)
[2020-09-07 21:31] LABS: ALKALINE PHOSPHATASE 63 U/L (45-117); BILIRUBIN,TOTAL 0.5 mg/dL (0.2-1.0); TOTAL PROTEIN 7.5 g/dL (6.4-8.2)
[2020-09-07 22:36] VITALS: BP 115/72
--- NOTE | 2020-09-07 23:03 | NUR ---
REPORT TO OTILIO RECIO.
== END 2020-09-07 23:23 | disposition home or self-care (01) ==
LOC: ED 21:00
DX: K80.51 Calculus of bile duct without cholangitis or cholecystitis with obstruction (principal); F17.210 Nicotine dependence, cigarettes, uncomplicated; I10 Essential (primary) hypertension; E11.9 Type 2 diabetes mellitus without complications; Z90.89 Acquired absence of other organs; Z85.3 Personal history of malignant neoplasm of breast
CPT/HCPCS: 36415; 76700; 80053; 83690; 85025; 99284; 99406; Q0162; Q9967

== ENCOUNTER 2020-10-28 14:25 | Emergency (ER) | payer OTHER ==
[~2020-10-28 14:25] MED LIST changes: -OMNIPAQUE 350 MG/ML, 100ML BOTTLE ONE
[2020-10-28 16:32] VITALS: BP 160/104
[2020-10-28 16:35] LABS: BASOPHILS % (AUTO) 1 % (0-1); EOSINOPHILS % (AUTO) 2 % (1-7); LYMPHOCYTES % (AUTO) 20 % (22-44); MEAN CORPUSCULAR HEMOGLOBIN 31.5 pg (27.0-34.8); MEAN CORPUSCULAR HGB CONC 33.9 g/dL (32.4-35.8); MEAN PLATELET VOLUME 7.2 fL (7.4-10.4); MONOCYTES % (AUTO) 8 % (2-9); NEUTROPHILS % (AUTO) 69 % (42-75); PLATELET COUNT 249 x10^3/uL (130-400); RED BLOOD COUNT 4.78 x10^6/uL (3.82-5.3); RED CELL DISTRIBUTION WIDTH 12.8 % (9.6-15.2)
[2020-10-28 16:47] LABS: ALBUMIN 3.2 g/dL (3.4-5.0); ANION GAP 2 mmol/L (5-15); CALCIUM 9.2 mg/dL (8.5-10.1); CHLORIDE 107 mmol/L (98-107)
[2020-10-28 16:51] LABS: ALANINE AMINOTRANSFERASE 27 U/L (12-78); ALKALINE PHOSPHATASE 70 U/L (45-117); BILIRUBIN,TOTAL 0.4 mg/dL (0.2-1.0); CREATININE 0.93 mg/dL (0.55-1.02); TOTAL PROTEIN 7.4 g/dL (6.4-8.2)
--- NOTE | 2020-10-28 18:45 | NUR ---
ASSUMED CARE OF PATIENT. PATIENT REPORTS RUQ ABD PAIN. VS STABLE. NO ACUTE DISTRESS NOTED. PT REPORTS IT IS WORSE WHEN SHE EATS. CALL LIGHT IN PLACE. WILL CONTINUE TO MONITOR.
--- NOTE | 2020-10-28 18:54 | NUR ---
DR PAGE IN ROOM. SENT
[2020-10-28] MEDS ORDERED: KETOROLAC 60 MG/2 ML ONE (18:56)
[2020-10-28] MEDS ORDERED: KETOROLAC 30 MG/1 ML IM ONE (19:00)
--- NOTE | 2020-10-28 19:01 | NUR ---
PT REFUSED TORADOL. DR PAGE AWARE.
[2020-10-28 19:18] LABS: MICROSCOPIC INDICATED
--- NOTE | 2020-10-28 19:25 | NUR ---
PT SIGNED OUT AMA, PT REFUSED TO STAY FOR CT. DR PAGE AWARE. PT LEFT.
== END 2020-10-28 19:27 | disposition left against medical advice (07) ==
LOC: ED 18:38
DX: R10.11 Right upper quadrant pain (principal); I10 Essential (primary) hypertension; E11.9 Type 2 diabetes mellitus without complications; F17.200 Nicotine dependence, unspecified, uncomplicated; Z85.3 Personal history of malignant neoplasm of breast
CPT/HCPCS: 36415; 76705; 80053; 81001; 83690; 85025; 87086; 99284

== ENCOUNTER 2020-11-15 23:18 | Emergency (ER) | payer OTHER ==
[~2020-11-15] VITALS: Ht 165.1 cm; Wt 72.3 kg
[2020-11-15] MEDS ORDERED: MORPHINE SULFATE 4 MG/ML, 1ML IVPush PRN (23:30)
[2020-11-15] MEDS ORDERED: SODIUM CHLORIDE FLUSH 10ML SYR IVF ONE (23:30)
[2020-11-15] MEDS ORDERED: SODIUM CHLORIDE 0.9% 1,000ML IVBOLUS ONE (23:30)
[2020-11-15] MEDS ORDERED: ONDANSETRON 2MG/ML, 2ML IVPush ONE (23:30)
[2020-11-15 23:55] LABS: BASOPHILS % (AUTO) 1 % (0-1); EOSINOPHILS % (AUTO) 2 % (1-7); LYMPHOCYTES % (AUTO) 20 % (22-44); MEAN CORPUSCULAR HEMOGLOBIN 32.1 pg (27.0-34.8); MEAN CORPUSCULAR HGB CONC 34.2 g/dL (32.4-35.8); MEAN PLATELET VOLUME 7.6 fL (7.4-10.4); MONOCYTES % (AUTO) 5 % (2-9); NEUTROPHILS % (AUTO) 73 % (42-75); PLATELET COUNT 283 x10^3/uL (130-400); RED BLOOD COUNT 4.91 x10^6/uL (3.82-5.3); RED CELL DISTRIBUTION WIDTH 13.4 % (9.6-15.2)
[2020-11-16 00:01] LABS: ALANINE AMINOTRANSFERASE 24 U/L (12-78); ALBUMIN 3.5 g/dL (3.4-5.0); ANION GAP 5 mmol/L (5-15); CALCIUM 9.5 mg/dL (8.5-10.1); CHLORIDE 107 mmol/L (98-107); CREATININE 1.19 mg/dL (0.55-1.02)
[2020-11-16 00:03] LABS: ALKALINE PHOSPHATASE 78 U/L (45-117); BILIRUBIN,TOTAL 0.4 mg/dL (0.2-1.0); TOTAL PROTEIN 7.7 g/dL (6.4-8.2)
[2020-11-16 00:06] LABS: MICROSCOPIC AUTO
--- NOTE | 2020-11-16 01:13 | NUR ---
PT PRESENTS TO THE ER FOR PAIN IN THE RIGHT UPPER ABDOMEN, PT STATES THIS PAIN HAS BEEN GOING ON FOR A COUPLE WEEKS, PAIN HAPPENS RIGHT AFTER EATING, PT STATES SHE HAS NAUSEA
[2020-11-16] MEDS ORDERED: ONDANSETRON 2MG/ML, 2ML ONE (01:29)
[2020-11-16] MEDS ORDERED: MORPHINE SULFATE 4 MG/ML, 1ML ONE (01:29)
[2020-11-16] MEDS ORDERED: HYDROcodone/APAP 5/325 TABLET PO ONE (01:30)
[2020-11-16] MEDS ORDERED: ONDANSETRON ODT 4 MG PO ONE (01:30)
[2020-11-16] MEDS ORDERED: HYDROcodone/APAP 5/325 TABLET ONE (02:46)
[2020-11-16 02:56] VITALS: BP 148/92
--- NOTE | 2020-11-16 03:01 | NUR ---
PT STATED THAT SHE HAS A FRIEND PICKING HER UP, PT GIVEN REFERRAL FOR GENERAL SURGERY AND PT EDUCATED ON HAVE A LOW GREASE AND FAT DIET, PT DISCHARGED AND NAD UPON DISCHARGE
== END 2020-11-16 03:02 | disposition home or self-care (01) ==
LOC: ED 23:45
DX: R10.11 Right upper quadrant pain (principal); R11.0 Nausea; I10 Essential (primary) hypertension; E11.9 Type 2 diabetes mellitus without complications; F17.200 Nicotine dependence, unspecified, uncomplicated
CPT/HCPCS: 36415; 76700; 80053; 81001; 83690; 85025; 87077; 87086; 93005; 96374; 96375; 99285; J2270; J2405